=== PATIENT | female | born 1930 | race Caucasian/White ===

== ENCOUNTER 2017-04-10 01:38 | Emergency (ER) | payer MEDICARE ==
--- NOTE | 2017-04-10 02:49 | EDM.PDOC ---
ED HPI GENERAL MEDICAL PROBLEM - General Chief Complaint: General Stated Complaint: NUMBNESS/TINGLING IN LEG Time Seen by Provider: 04/10/17 01:38 Source of Information: Reports: Patient, EMS, Family History Limitations: Reports: Physical Impairment - History of Present Illness INITIAL COMMENTS - FREE TEXT/NARRATIVE: 86 years o w f with chronic anemia, s/o t hip surgeries, came to the ed by EMS and family to the worsening of her right hip pain. Pt needs more help to ambulate at the assisting living place. Pt has an appointment with Dr. Ramírez Ortho this coming Friday. No trauma, No N/V/D or chest pain or any other acute medical issues at this time. Pt is very sensitive to "strong pain meds". Onset: Unknown/Unsure Onset Date: 04/09/17 Onset Time: 12:00 Duration: Getting Worse Location: Reports: Lower Extremity, Right Quality: Reports: Ache, Burning, Dull, Pressure Severity: Moderate Improves with: Reports: Immobilization, Rest Worsens with: Reports: Movement Context: Reports: Other (s/p hip fx, total hip replacement. ) Associated Symptoms: Reports: Weakness - Related Data Allergies Allergy/AdvReac Type Severity Reaction Status Date / Time donepezil HCl [From Aricept] Allergy Rash Verified 04/10/17 02:50 lisinopril Allergy Cough Verified 04/10/17 02:50 Penicillins Allergy Itching Verified 04/10/17 02:50 Home Meds: Home Meds Calcium Carbonate/Vitamin D3 [Caltrate 600 Plus D3 Tablet] 1 tab PO BID [History] Fish Oil/DHA/EPA [Fish Oil 1,200 MG] 1,200 mg PO DAILY 02/05/15 [History] Cyanocobalamin (Vitamin B-12) [Cyanocobalamin Injection] 1,000 mcg IM Q30D 02/10 [History] Cholecalciferol (Vitamin D3) [Vitamin D3] 2,000 unit PO WITHDINNER 06/02/15 [ History] Multivitamin W-Minerals/Lutein [Vision Plus Lutein Vitamin] 1 tab PO DAILY 06/02 [History] Acetaminophen [Tylenol Extra Strength] 1,000 mg PO BID@0900,1600 tablet [Rx] Celecoxib [CeleBREX] 200 mg PO DAILY cap 06/05/15 [Rx] Cephalexin [Keflex] 500 mg PO QID cap 06/05/15 [Rx] Chondroitin/Glucosamine [Glucosamine-Chondroitin] 1 cap PO BID cap 06/05/15 [Rx ] Docusate Sodium [Colace] 100 mg PO BID cap 06/05/15 [Rx] Enoxaparin [Lovenox] 40 mg SUBCUT DAILY syringe 06/05/15 [Rx] Flaxseed Oil 1,000 mg PO DAILY cap 06/05/15 [Rx] Levothyroxine [Synthroid] 50 mcg PO 0600 tablet 06/05/15 [Rx] Magnesium Oxide 400 mg PO DAILY tablet 06/05/15 [Rx] Memantine HCl [Namenda Xr] 28 mg PO DAILY cap.er 06/05/15 [Rx] Mirtazapine [Remeron] 7.5 mg PO BEDTIME tablet 06/05/15 [Rx] Omeprazole 20 mg PO DAILY@0600 cap.cr 06/05/15 [Rx] Sennosides [Senna] 17.2 mg PO BEDTIME tablet 06/05/15 [Rx] Simvastatin [Zocor] 20 mg PO BEDTIME tablet 06/05/15 [Rx] Thiamine [Vitamin B-1] 100 mg PO DAILY tablet 06/05/15 [Rx] Timolol Maleate [Timoptic 0.5% Ophth Soln] 0 ml EYEBOTH DAILY bottle 06/05/15 [ Rx] Valsartan [Diovan] 80 mg PO DAILY tablet 06/05/15 [Rx] oxyCODONE 2.5 mg PO Q6H tablet 06/05/15 [Rx] rOPINIRole [Requip] 0.5 mg PO BEDTIME tablet 06/05/15 [Rx] traMADol [Ultram] 25 mg PO Q6H PRN #0 tablet 06/05/15 [Rx] Past Medical History HEENT History: Reports: Cataract, Impaired Vision Other HEENT History: Wears glasses Gastrointestinal History: Reports: Hemorrhoids Genitourinary History: Reports: Renal Calculus, UTI, Recurrent Other Genitourinary History: Still on cipro for UTI. Incontinence occasionally if unable to get to commode quickly. Use bedside commode. Other Psychiatric History: Mild dementia Other Hematologic History: Recent hx of low Hgb (7.1). Has had 2 U blood, 2 iron infusions. - Past Surgical History GI Surgical History: Reports: Appendectomy, Bariatric Procedure Musculoskeletal Surgical History: Reports: Hip Replacement, Knee Replacement Social & Family History - Tobacco Use Smoking Status *Q: Never Smoker Second Hand Smoke Exposure: No - Alcohol Use Days Per Week of Alcohol Use: 1 Number of Drinks Per Day: 1 Total Drinks Per Week: 1 - Recreational Drug Use Recreational Drug Use: No - Living Situation & Occupation Living situation: Reports: Assisted Living ED ROS GENERAL - Review of Systems Review Of Systems: See Below Constitutional: Reports: Weakness HEENT: Reports: No Symptoms Respiratory: Reports: No Symptoms Cardiovascular: Reports: No Symptoms Endocrine: Reports: No Symptoms GI/Abdominal: Reports: No Symptoms : Reports: No Symptoms Musculoskeletal: Reports: Joint Pain (r hip), Muscle Pain Skin: Reports: No Symptoms Neurological: Reports: No Symptoms, Difficulty Walking (due to r hip pain) Psychiatric: Reports: No Symptoms Hematologic/Lymphatic: Reports: No Symptoms Immunologic: Reports: No Symptoms ED EXAM, GENERAL - Physical Exam Exam: See Below Exam Limited By: Physical Impairment General Appearance: Alert, Obese Eye Exam: Bilateral Eye: Normal Inspection Ears: Normal External Exam Ear Exam: Bilateral Ear: Auricle Normal Nose: Normal Inspection, Normal Mucosa Throat/Mouth: Normal Inspection, Normal Lips Head: Atraumatic, Normocephalic Neck: Normal Inspection, Supple, Non-Tender Respiratory/Chest: No Respiratory Distress, Lungs Clear, Normal Breath Sounds ( decr. insp effort) Cardiovascular: Normal Peripheral Pulses, Regular Rate, Rhythm, No Edema Peripheral Pulses: 1+: Femoral (L), Femoral (R) GI/Abdominal: Normal Bowel Sounds, Distended (not new!) (Female) Exam: Deferred Rectal (Female) Exam: Deferred Back Exam: Normal Inspection, Full Range of Motion Extremities: Other (ROM of r hip decreased due to r hip pain) Neurological: Alert, Oriented, CN II-XII Intact, Normal Cognition, Abnormal Gait Psychiatric: Normal Affect, Normal Mood Skin Exam: Warm, Dry, Intact, Normal Color, No Rash Lymphatic: No Adenopathy Course - Vital Signs Text/Narrative:: 86 years o w f with chronic anemia, s/o t hip surgeries, came to the ed by EMS and family to the worsening of her right hip pain. Pt needs more help to ambulate at the assisting living place. Pt has an appointment with Dr. Ramírez, Ortho this coming Friday. No trauma, No N/V/D or chest pain or any other acute medical issues at this time. Pt is very sensitive to "strong pain meds". Pt's daughter is a nurse. PE Unable to elevate r lower extr. due to hip pain. Suprapubic tenderness. Imaging: s/p Total r hip replacement, no dislocation. Labs: CBC, BMP all WNL UA pos for UTI with hematuria CRP result is pending Impression: UTI, chronic/intermittant r hip pain s/p total hip replacement Tx: Cipro, Pt refused pain meds. Consultation: Dr. Pires, Ortho [facility]: Nothith surgical at this point, f/ u with ortho next friday or admit for pain control. Plan: D/C home. Pt refused to be admitted at this time. Last Recorded V/S: Late entry because the computer was shutting down. - Orders/Labs/Meds Labs: Laboratory Tests 04/10/17 04/10/17 04/10/17 Range/Units 02:18 02:18 02:18 WBC 7.3 (4.5-12.0) X10-3/uL RBC 3.73 (3.23-5.20) x10(6)uL Hgb 11.0 L (11.5-15.5) g/dL Hct 33.3 (30.0-51.3) % MCV 89.2 (80-96) fL MCH 29.5 (27.7-33.6) pg MCHC 33.1 (32.2-35.4) g/dL RDW 12.4 (11.5-15.5) % Plt Count 169 (125-369) X10(3)uL MPV 9.0 (7.4-10.4) fL Neut % (Auto) 62.5 (46-82) % Lymph % (Auto) 25.7 (13-37) % [place] % (Auto) 10.8 (4-12) % Eos % (Auto) 1 (1.0-5.0) % Baso % (Auto) 0 (0-2) % Neut # (Auto) 4.5 (1.6-8.3) # Lymph # (Auto) 1.9 (0.6-5.0) # [place] # (Auto) 0.8 (0.0-1.3) # Eos # (Auto) 0.1 (0.0-0.8) # Baso # (Auto) 0.0 (0.0-0.2) # PT 10.3 (8.7-11.1) INR 1.02 (0.89-1.13) Sodium 138 (135-145) mmol/L Potassium 3.6 (3.5-5.3) mmol/L Chloride 103 (100-110) mmol/L Carbon Dioxide 29 (23-29) mmol/L BUN 20 (8-23) mg/dL Creatinine 0.8 (0.6-1.3) mg/dL Est Cr Clr Drug Dosing TNP Estimated GFR (MDRD) > 60 (>60) BUN/Creatinine Ratio 25.0 H (9-20) Glucose 132 H (80-116) mg/dL Calcium 9.5 (8.6-10.2) mg/dL Creatine Kinase (60-160) IU/L C-Reactive Protein (0.0-1.0) mg/dL Urine Color (YELLOW) Urine Appearance (CLEAR) Urine pH (5.0-6.5) Ur Specific [place] (1.010-1.025) Urine Protein (NEGATIVE) mg/dL Urine Glucose (UA) (NEGATIVE) mg/dL Urine Ketones (NEGATIVE) mg/dL Urine Occult Blood (NEGATIVE) Urine Nitrite (NEGATIVE) Urine Bilirubin (NEGATIVE) Urine Urobilinogen (NEGATIVE) mg/dL Ur Leukocyte Esterase (NEGATIVE) Urine RBC (0) Urine WBC (0) Ur Squamous Epith Cells (NS,R,O) Urine Bacteria (NS) Urine Mucus (NS) 04/10/17 04/10/17 04/10/17 Range/Units 02:18 02:20 02:42 WBC (4.5-12.0) X10-3/uL RBC (3.23-5.20) x10(6)uL Hgb (11.5-15.5) g/dL Hct (30.0-51.3) % MCV (80-96) fL MCH (27.7-33.6) pg MCHC (32.2-35.4) g/dL RDW (11.5-15.5) % Plt Count (125-369) X10(3)uL MPV (7.4-10.4) fL Neut % (Auto) (46-82) % Lymph % (Auto) (13-37) % [place] % (Auto) (4-12) % Eos % (Auto) (1.0-5.0) % Baso % (Auto) (0-2) % Neut # (Auto) (1.6-8.3) # Lymph # (Auto) (0.6-5.0) # [place] # (Auto) (0.0-1.3) # Eos # (Auto) (0.0-0.8) # Baso # (Auto) (0.0-0.2) # PT (8.7-11.1) INR (0.89-1.13) Sodium (135-145) mmol/L Potassium (3.5-5.3) mmol/L Chloride (100-110) mmol/L Carbon Dioxide (23-29) mmol/L BUN (8-23) mg/dL Creatinine (0.6-1.3) mg/dL Est Cr Clr Drug Dosing Estimated GFR (MDRD) (>60) BUN/Creatinine Ratio (9-20) Glucose (80-116) mg/dL Calcium (8.6-10.2) mg/dL Creatine Kinase 44 L (60-160) IU/L C-Reactive Protein > 20.0 H* (0.0-1.0) mg/dL Urine Color Yellow (YELLOW) Urine Appearance Cloudy (CLEAR) Urine pH 5.0 (5.0-6.5) Ur Specific [place] 1.025 (1.010-1.025) Urine Protein 30 H (NEGATIVE) mg/dL Urine Glucose (UA) Normal (NEGATIVE) mg/dL Urine Ketones Negative (NEGATIVE) mg/dL Urine Occult Blood Large H (NEGATIVE) Urine Nitrite Negative (NEGATIVE) Urine Bilirubin Small H (NEGATIVE) Urine Urobilinogen Normal (NEGATIVE) mg/dL Ur Leukocyte Esterase Small H (NEGATIVE) Urine RBC 30-40 H (0) Urine WBC 5-10 (0) Ur Squamous Epith Cells Few H (NS,R,O) Urine Bacteria Moderate H (NS) Urine Mucus Few H (NS) Meds: Medications Discontinued Medications Generic Name Dose Route Start Last Admin Trade Name Freq PRN Reason Stop Dose Admin Ciprofloxacin Confirm 04/10/17 03:49 Ciprofloxacin Hcl Administered 04/10/17 03:50 Dose 500 mg .ROUTE .STK-MED ONE Departure - Departure Time of Disposition: 03:54 Disposition: Home, Self-Care 01 Condition: Fair Clinical Impression: Hip pain, right UTI (urinary tract infection) Qualifiers: Urinary tract infection type: acute cystitis Hematuria presence: with hematuria Qualified Code(s): N30.01 - Acute cystitis with hematuria - Discharge Information Referrals: Tucker White MD [Primary Care Provider] - Forms: ED Department Discharge Additional Instructions: Please take the meds as recommended, please follow up with Ortho this Friday as scheduled at [place]. Please increase water intake, please come back to the ed if your symptoms get worse acutely.
[2017-04-10] MEDS ORDERED: Ciprofloxacin 500 MG Tab ONE (03:49)
--- NOTE | 2017-04-10 16:14 | CR ---
INDICATION: Right hip pain after surgery. (Not recent surgery.) No history of trauma. RIGHT HIP: Four images of the right hip were obtained in frontal and lateral projections to somewhat oblique appearing projection, 04/10/2017, and were compared with 09/18/2015. There appears to be a lucency surrounding the proximal portion of the femoral component, suggesting the possibility of loosening of the femoral component in that area, especially the greater trochanteric area. This appears to be a new finding compared with the previous study. The femoral component appears to be fairly intact. Good position and alignment of the components is suggested, as previously. Also at the proximal sub-greater trochanteric shaft area - proximal metaphyseal area, there is an area of sclerosis at which site a previous lucent lesion was present. This finding may represent a chronic infectious process, such as a Brodies abscess, and should be correlated clinically. Nuclear bone imaging with 3-phase technique may be helpful in this regard also. IMPRESSION: 1. Cannot exclude loosening of the femoral component of the total hip arthroplasty. Three-phase nuclear bone imaging may be helpful for further evaluation, as felt to be clinically necessary. 2. At the proximal sub-greater trochanteric shaft area - proximal metaphyseal area, there is an area of sclerosis at which site a previous lucent lesion was present. This finding may represent a chronic infectious process, such as a Brodies abscess, and should be correlated clinically. Nuclear bone imaging with 3-phase technique may be helpful in this regard also. [facility]
== END 2017-04-10 04:00 | disposition home or self-care (01) ==
LOC: FB.ED 01:38
DX: N30.01 Acute cystitis with hematuria (principal); M25.551 Pain in right hip; Z87.442 Personal history of urinary calculi; Z98.84 Bariatric surgery status; Z96.659 Presence of unspecified artificial knee joint; Z96.649 Presence of unspecified artificial hip joint; Z79.899 Other long term (current) drug therapy; Z88.0 Allergy status to penicillin; Z88.8 Allergy status to other drugs, medicaments and biological substances; Z79.01 Long term (current) use of anticoagulants
CPT/HCPCS: 36415; 73502; 80048; 81001; 82550; 85025; 85610; 86140; 87086; 87088; 87186; 99283; 99284; A9270

== ENCOUNTER 2017-06-16 08:59 | Inpatient (IN) | payer MEDICARE ==
[2017-06-16] MEDS ORDERED: Acetaminophen 325 MG Tab PO SCH (19:00)
[2017-06-16] MEDS: Calcium Carbonate/Vitamin D3 1250 MG-200 Unit Tab PO SCH (20:56)
[2017-06-16] MEDS: Simvastatin 20 MG Tab PO SCH (20:56)
[2017-06-16] MEDS: Chondroitin/Glucosamine Cap PO SCH (20:56)
[2017-06-16] MEDS: Cholecalciferol (Vitamin D3) 1,000 Unit Tab PO SCH (20:56)
[2017-06-16] MEDS: Sennosides 8.6 MG Tab PO SCH (20:56)
[2017-06-16] MEDS: Docusate Sodium 100 MG Cap PO SCH (20:56)
[2017-06-16] MEDS: Memantine 10 MG Tab PO SCH (20:57)
[2017-06-16] MEDS: Mirtazapine 15 MG Tab PO SCH (20:57)
[2017-06-16] MEDS: rOPINIRole 0.5 MG Tab PO SCH (20:57)
[2017-06-16] MEDS: traMADol 50 MG Tab PO PRN (21:56)
[2017-06-17] MEDS: Acetaminophen 325 MG Tab PO SCH ×3 (01:05→17:45)
[2017-06-17] MEDS: Levothyroxine 50 MCG Tab PO SCH (05:13)
[2017-06-17] MEDS: traMADol 50 MG Tab PO PRN ×3 (05:13→20:10)
[2017-06-17] MEDS: Pantoprazole 40 MG Tab.CR PO SCH (05:13)
[2017-06-17] MEDS: Celecoxib 200 MG Cap PO SCH (08:43)
[2017-06-17] MEDS: Citalopram 10 MG Tab PO SCH (08:43)
[2017-06-17] MEDS: Calcium Carbonate/Vitamin D3 1250 MG-200 Unit Tab PO SCH ×2 (08:43→20:06)
[2017-06-17] MEDS: Valsartan 160 MG Tab PO SCH (08:44)
[2017-06-17] MEDS: Docusate Sodium 100 MG Cap PO SCH ×2 (08:44→20:07)
[2017-06-17] MEDS: Chondroitin/Glucosamine Cap PO SCH ×2 (08:45→20:07)
[2017-06-17] MEDS: Fish Oil/Omega-3 Fatty Acids 1 Gm Cap PO SCH (08:45)
[2017-06-17] MEDS: Flaxseed Oil 1,000 MG Cap PO SCH (08:45)
[2017-06-17] MEDS: Magnesium Oxide 400 MG Tab PO SCH (08:46)
[2017-06-17] MEDS: Enoxaparin 40 MG/0.4 ML Syringe SUBCUT SCH (08:46)
[2017-06-17] MEDS: Memantine 10 MG Tab PO SCH ×2 (08:47→20:08)
[2017-06-17] MEDS: Polyethylene Glycol 3350 Powder 17 GM Packet PO SCH (08:47)
[2017-06-17] MEDS: Lutein/Minerals/Vitamin C/Vitamin E Acetate Cap PO SCH (08:48)
[2017-06-17] MEDS: amLODIPine 2.5 MG Tab PO SCH (08:48)
[2017-06-17] MEDS: Timolol Maleate 0.5% Ophth Soln 5 ML Bottle EYEBOTH SCH (08:48)
[2017-06-17] MEDS: Thiamine 100 MG Tab PO SCH (08:51)
[2017-06-17] MEDS: rOPINIRole 0.5 MG Tab PO SCH (20:08)
[2017-06-17] MEDS: Mirtazapine 15 MG Tab PO SCH (20:08)
[2017-06-17] MEDS: Sennosides 8.6 MG Tab PO SCH (20:09)
[2017-06-17] MEDS: Cholecalciferol (Vitamin D3) 1,000 Unit Tab PO SCH (20:09)
[2017-06-17] MEDS: Acetaminophen/Diphenhydramine 500-25 MG Tab PO PRN (20:10)
[2017-06-17] MEDS: Simvastatin 20 MG Tab PO SCH (20:10)
[2017-06-18] MEDS: Acetaminophen 325 MG Tab PO SCH ×3 (01:04→16:55)
[2017-06-18] MEDS: Levothyroxine 50 MCG Tab PO SCH (05:06)
[2017-06-18] MEDS: Pantoprazole 40 MG Tab.CR PO SCH (05:07)
[2017-06-18] MEDS: Celecoxib 200 MG Cap PO SCH (09:06)
[2017-06-18] MEDS: Calcium Carbonate/Vitamin D3 1250 MG-200 Unit Tab PO SCH ×2 (09:06→21:00)
[2017-06-18] MEDS: Citalopram 10 MG Tab PO SCH (09:07)
[2017-06-18] MEDS: Docusate Sodium 100 MG Cap PO SCH ×2 (09:07→21:00)
[2017-06-18] MEDS: Valsartan 160 MG Tab PO SCH (09:07)
[2017-06-18] MEDS: Flaxseed Oil 1,000 MG Cap PO SCH (09:08)
[2017-06-18] MEDS: Chondroitin/Glucosamine Cap PO SCH ×2 (09:08→21:01)
[2017-06-18] MEDS: Fish Oil/Omega-3 Fatty Acids 1 Gm Cap PO SCH (09:08)
[2017-06-18] MEDS: Enoxaparin 40 MG/0.4 ML Syringe SUBCUT SCH (09:09)
[2017-06-18] MEDS: Polyethylene Glycol 3350 Powder 17 GM Packet PO SCH (09:09)
[2017-06-18] MEDS: Memantine 10 MG Tab PO SCH ×2 (09:09→21:05)
[2017-06-18] MEDS: Magnesium Oxide 400 MG Tab PO SCH (09:09)
[2017-06-18] MEDS: amLODIPine 2.5 MG Tab PO SCH (09:10)
[2017-06-18] MEDS: Timolol Maleate 0.5% Ophth Soln 5 ML Bottle EYEBOTH SCH (09:10)
[2017-06-18] MEDS: Lutein/Minerals/Vitamin C/Vitamin E Acetate Cap PO SCH (09:10)
[2017-06-18] MEDS: Thiamine 100 MG Tab PO SCH (09:12)
--- NOTE | 2017-06-18 09:22 | PCM.HP ---
H&P History of Present Illness - General Date of Service: 06/18/17 Admit Problem/Dx: Admission Diagnosis/Problem Admission Diagnosis/Problem Weakness - History of Present Illness Initial Comments - Free Text/Narative: 86-year-old female who has been admitted to transitional care after deviation of right hip arthroplasty. This was pursued on 11 June [place]. She had 2 units of PRBCs afterwards. She complains of mild constipation. Pain is well controlled on Tylenol. She has a history of hyperlipidemia, restless leg syndrome of mood disorder that are stable. denies pain when asked Pain Score (Numeric/FACES): 0 lateral area of right hip Pain Score (Numeric/FACES): 2 - Related Data Allergies/Adverse Reactions: Allergies Allergy/AdvReac Type Severity Reaction Status Date / Time adhesive tape Allergy Rash Verified 06/16/17 16:21 bee venom protein (honey bee) Allergy Swelling Verified 06/16/17 16:21 donepezil HCl [From Aricept] Allergy Rash Verified 06/16/17 16:21 lisinopril Allergy Cough Verified 06/16/17 16:21 morphine Allergy Hallucinati Verified 06/16/17 16:21 ons Penicillins Allergy Itching Verified 06/16/17 16:21 Home Medications: Home Meds Fish Oil/DHA/EPA [Fish Oil 1,200 MG] 1,200 mg PO DAILY 02/05/15 [History] Multivitamin W-Minerals/Lutein [Vision Plus Lutein Vitamin] 1 tab PO DAILY 06/02 [History] Celecoxib [CeleBREX] 200 mg PO DAILY cap 06/05/15 [Rx] Chondroitin/Glucosamine [Glucosamine-Chondroitin] 1 cap PO BID cap 06/05/15 [Rx ] Docusate Sodium [Colace] 100 mg PO BID cap 06/05/15 [Rx] Levothyroxine [Synthroid] 50 mcg PO 0600 tablet 06/05/15 [Rx] Magnesium Oxide 400 mg PO DAILY tablet 06/05/15 [Rx] Memantine HCl [Namenda Xr] 28 mg PO DAILY cap.er 06/05/15 [Rx] Mirtazapine [Remeron] 7.5 mg PO BEDTIME tablet 06/05/15 [Rx] Omeprazole 20 mg PO DAILY@0600 cap.cr 06/05/15 [Rx] Sennosides [Senna] 17.2 mg PO BEDTIME tablet 06/05/15 [Rx] Simvastatin [Zocor] 20 mg PO BEDTIME tablet 06/05/15 [Rx] Thiamine [Vitamin B-1] 100 mg PO DAILY tablet 06/05/15 [Rx] rOPINIRole [Requip] 0.5 mg PO BEDTIME tablet 06/05/15 [Rx] Acetaminophen [Tylenol] 650 mg PO Q8H 06/16/17 [History] Acetaminophen/Diphenhydramine [Tylenol Pm Ex-Strength Caplet] 2 tab PO BEDTIME PRN 06/16/17 [History] Calcium Citrate/Vitamin D3 [Calcium Citrate - Vit D Tablet] 2 tab PO BID [History] Cholecalciferol (Vitamin D3) [Vitamin D] 2,000 units PO BEDTIME 06/16/17 [ History] Citalopram [Citalopram HBr] 10 mg PO DAILY 06/16/17 [History] Enoxaparin Sodium [Lovenox] 40 mg SUBCUT DAILY 06/16/17 [History] Flaxseed 1200mg 1,200 mg PO DAILY 06/16/17 [History] Polyethylene Glycol 3350 [MiraLAX] 17 gm PO DAILY 06/16/17 [History] Timolol Maleate [Timoptic 0.5% Ophth Soln] 1 drop EYEBOTH DAILY 06/16/17 [ History] Valsartan [Diovan] 160 mg PO DAILY 06/16/17 [History] amLODIPine [Norvasc] 2.5 mg PO DAILY 06/16/17 [History] oxyCODONE 5 mg PO Q4H PRN 06/16/17 [History] traMADol [Ultram] 50 mg PO Q6H PRN 06/16/17 [History] Past Medical History HEENT History: Reports: Cataract, Impaired Vision Other HEENT History: Wears glasses Cardiovascular History: Reports: Heart Murmur, High Cholesterol, Hypertension Gastrointestinal History: Reports: GERD, Hemorrhoids Genitourinary History: Reports: Renal Calculus, UTI, Recurrent Other Genitourinary History: Still on cipro for UTI. Incontinence occasionally if unable to get to commode quickly. Use bedside commode. Musculoskeletal History: Reports: Other (See Below) Other Musculoskeletal History: restless leg syndrome Neurological History: Reports: Other (See Below) Other Neuro History: spine surgery-10 years ago Psychiatric History: Reports: Dementia, Depression Other Psychiatric History: Mild dementia Endocrine/Metabolic History: Reports: Hypothyroidism Hematologic History: Reports: Anemia, Other (See Below) Other Hematologic History: Recent hx of low Hgb (7.1). Has had 2 U blood, 2 iron infusions. 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 Endocrine Surgical History: Reports: Thyroidectomy Other Endocrine Surgeries/Procedures: 40 years ago Musculoskeletal Surgical History: Reports: Hip Replacement, Knee Replacement, Other (See Below) Other Musculoskeletal Surgeries/Procedures:: Hip arthroplasty 2014; carpal tunnel surgery Social & Family History - Tobacco Use Smoking Status *Q: Former Smoker Used Tobacco, but Quit: No Second Hand Smoke Exposure: No - Caffeine Use Caffeine Use: Reports: Coffee Other Caffeine Use: 1 coffee cup - Alcohol Use Days Per Week of Alcohol Use: 1 Number of Drinks Per Day: 1 Total Drinks Per Week: 1 - Recreational Drug Use Recreational Drug Use: No - Living Situation & Occupation Living situation: Reports: Assisted Living H&P Review of Systems - Review of Systems: Review Of Systems: ROS reveals no pertinent complaints other than HPI. Exam - Exam Exam: See Below - Vital Signs Vital Signs: Last Vital Signs Temp 98.1 F 06/16/17 14:10 Pulse 66 06/16/17 14:10 Resp 18 06/16/17 14:10 BP 130/78 06/18/17 09:10 Pulse Ox 95 06/16/17 14:10 Weight: 95.254 kg - Exam General: Alert, Oriented, 4 HEENT: PERRLA, Hearing Intact, Mucosa Moist & [place], Nares Patent, Normal Nasal Septum, Posterior Pharynx Clear, Conjunctiva Clear, EOMI, EACs Clear, TMs Clear Neck: Supple, Trachea Midline, 2 Lungs: Clear to Auscultation, Normal Respiratory Effort Cardiovascular: Systolic Murmur, Other GI/Abdominal Exam: Normal Bowel Sounds, Soft, Non-Tender, No Organomegaly, No Distention, No Abnormal Bruit, No Mass, Pelvis Stable (Female) Exam: Normal External Exam, Normal Speculum Exam, Normal Bimanual Exam Rectal (Female) Exam: Normal Exam, Normal Rectal Tone Back Exam: Normal Inspection, Full Range of Motion, NT Extremities: Normal Inspection, Normal Range of Motion, Non-Tender, No Pedal Edema, Normal Capillary Refill Skin: Warm, Dry, Intact Neurological: Cranial Nerves Intact, Reflexes Equal Bilateral Neuro Extensive - Mental Status: Alert, Oriented x3, Normal Mood/Affect, Normal Cognition Neuro Extensive - Motor, Sensory, Reflexes: CN II-XII Intact, Normal Gait, Normal Reflexes Psychiatric: Alert, Normal Affect, Normal Mood *Q Meaningful Use (ADM) - VTE *Q VTE Criteria *Q: - Stroke *Q Stroke Criteria *Q: - AMI *Q AMI Criteria *Q: - Problem List (1) HTN (hypertension) SNOMED Code(s): 80541701 ICD Code: I10 - ESSENTIAL (PRIMARY) HYPERTENSION Status: Acute Current Visit: Yes Qualifiers: Hypertension type: essential hypertension Qualified Code(s): I10 - Essential (primary) hypertension (2) RLS (restless legs syndrome) SNOMED Code(s): 48452540 ICD Code: G25.81 - RESTLESS LEGS SYNDROME Status: Acute Current Visit: Yes (3) Chronic anemia SNOMED Code(s): 738292771 ICD Code: D64.9 - ANEMIA, UNSPECIFIED Status: Acute Current Visit: No Problem Details: stable h/h. recent 2 units prbc post op and iron infusion. no active bleeding concerns at this time. (4) Status post right hip replacement SNOMED Code(s): 628130848, 313856162 ICD Code: Z96.641 - PRESENCE OF RIGHT ARTIFICIAL HIP JOINT Status: Acute Current Visit: No Problem Details: revised on 06/11 (5) HLD (hyperlipidemia) SNOMED Code(s): 19462649 ICD Code: E78.5 - HYPERLIPIDEMIA, UNSPECIFIED Status: Acute Current Visit : Yes Qualifiers: Hyperlipidemia type: other hyperlipidemia Qualified Code(s): E78.4 - Other hyperlipidemia (6) Mood disorder Status: Acute Current Visit: Yes Problem List Initiated/Reviewed/Updated: Yes Orders Last 24hrs: Active Orders 24 hr Category Date Time Status Celecoxib [CeleBREX] Med 06/17/17 09:00 Active 200 mg PO DAILY Citalopram [Celexa] Med 06/17/17 09:00 Active 10 mg PO DAILY Enoxaparin [Lovenox] Med 06/17/17 09:00 Active 40 mg SUBCUT DAILY Fish Oil/[place]-3 Fatty Acids [Fish Oil] Med 06/17/17 09:00 Active 1 gm PO DAILY Flaxseed Oil Med 06/17/17 09:00 Active 1,000 mg PO DAILY Lutein/Min/Vit C/Vit E Acetate [Ocuvite Lutein] Med 06/17/17 09:00 Active 1 each PO DAILY Magnesium Oxide Med 06/17/17 09:00 Active 400 mg PO DAILY Polyethylene Glycol 3350 [MiraLAX] Med 06/17/17 09:00 Active 17 gm PO DAILY Thiamine [Vitamin B-1] Med 06/17/17 09:00 Active 100 mg PO DAILY Timolol Maleate [Timoptic 0.5% Ophth Soln] Med 06/17/17 09:00 Active 0 ml EYEBOTH DAILY Valsartan [Diovan] Med 06/17/17 09:00 Active 160 mg PO DAILY amLODIPine [Norvasc] Med 06/17/17 09:00 Active 2.5 mg PO DAILY Medication Orders Acetaminophen (Tylenol) 650 mg PO TID@0100,0900,1700 [facility] Last Admin: 06/18/17 09:10 Dose: 650 mg Admin: 06/18/17 01:04 Dose: 650 mg Admin: 06/17/17 17:45 Dose: 650 mg Admin: 06/17/17 08:49 Dose: 650 mg Admin: 06/17/17 01:05 Dose: 650 mg Acetaminophen/Diphenhydramine HCl (Tylenol Pm Extra Strength) 2 tab PO BEDTIME PRN PRN Reason: Sleep Last Admin: 06/17/17 20:10 Dose: 2 tab Amlodipine Besylate (Norvasc) 2.5 mg PO DAILY [facility] Last Admin: 06/18/17 09:10 Dose: 2.5 mg Admin: 06/17/17 08:48 Dose: 2.5 mg Calcium Carbonate (Calcium Carbonate/Vitamin D 1250 Mg-200 Unit) 2 tab PO BID [facility] Last Admin: 06/18/17 09:06 Dose: 2 tab Admin: 06/17/17 20:06 Dose: 2 tab Admin: 06/17/17 08:43 Dose: 2 tab Admin: 06/16/17 20:56 Dose: 2 tab Celecoxib (Celebrex) 200 mg PO DAILY [facility] Last Admin: 06/18/17 09:06 Dose: 200 mg Admin: 06/17/17 08:43 Dose: 200 mg Cholecalciferol (Vitamin D3) 2,000 units PO BEDTIME [facility] Last Admin: 06/17/17 20:09 Dose: 2,000 units Admin: 06/16/17 20:56 Dose: 2,000 units Citalopram Hydrobromide (Celexa) 10 mg PO DAILY [facility] Last Admin: 06/18/17 09:07 Dose: 10 mg Admin: 06/17/17 08:43 Dose: 10 mg Docusate Sodium (Colace) 100 mg PO BID [facility] Last Admin: 06/18/17 09:07 Dose: 100 mg Admin: 06/17/17 20:07 Dose: 100 mg Admin: 06/17/17 08:44 Dose: 100 mg Admin: 06/16/17 20:56 Dose: 100 mg Enoxaparin Sodium (Lovenox) 40 mg SUBCUT DAILY [facility] Last Admin: 06/18/17 09:09 Dose: 40 mg Admin: 06/17/17 08:46 Dose: 40 mg Fish Oil (Fish Oil) 1 gm PO DAILY [facility] Last Admin: 06/18/17 09:08 Dose: 1 gm Admin: 06/17/17 08:45 Dose: 1 gm Flaxseed (Flaxseed Oil) 1,000 mg PO DAILY [facility] Last Admin: 06/18/17 09:08 Dose: 1,000 mg Admin: 06/17/17 08:45 Dose: 1,000 mg Glucosamine/Chondroitin (Glucosamine-Chondroitin 500-400 Capsule) 1 cap PO BID [facility] Last Admin: 06/18/17 09:08 Dose: 1 cap Admin: 06/17/17 20:07 Dose: 1 cap Admin: 06/17/17 08:45 Dose: 1 cap Admin: 06/16/17 20:56 Dose: 1 cap Levothyroxine Sodium (Synthroid) 50 mcg PO 0600 [facility] Last Admin: 06/18/17 05:06 Dose: 50 mcg Admin: 06/17/17 05:13 Dose: 50 mcg Magnesium Oxide (Magnesium Oxide) 400 mg PO DAILY [facility] Last Admin: 06/18/17 09:09 Dose: 400 mg Admin: 06/17/17 08:46 Dose: 400 mg Memantine (Namenda) 10 mg PO BID [facility] Last Admin: 06/18/17 09:09 Dose: 10 mg Admin: 06/17/17 20:08 Dose: 10 mg Admin: 06/17/17 08:47 Dose: 10 mg Admin: 06/16/17 20:57 Dose: 10 mg Mirtazapine (Remeron) 7.5 mg PO BEDTIME [facility] Last Admin: 06/17/17 20:08 Dose: 7.5 mg Admin: 06/16/17 20:57 Dose: 7.5 mg Oxycodone HCl (Oxycodone) 5 mg PO Q4H PRN PRN Reason: severe pain Pantoprazole Sodium (Protonix) 40 mg PO DAILY@0600 [facility] Last Admin: 06/18/17 05:07 Dose: 40 mg Admin: 06/17/17 05:13 Dose: 40 mg Polyethylene Glycol (Miralax) 17 gm PO DAILY [facility] Last Admin: 06/18/17 09:09 Dose: 17 gm Admin: 06/17/17 08:47 Dose: Not Given Ropinirole HCl (Requip) 0.5 mg PO BEDTIME [facility] Last Admin: 06/17/17 20:08 Dose: 0.5 mg Admin: 06/16/17 20:57 Dose: 0.5 mg Senna (Senna) 17.2 mg PO BEDTIME [facility] Last Admin: 06/17/17 20:09 Dose: 17.2 mg Admin: 06/16/17 20:56 Dose: 17.2 mg Simvastatin (Zocor) 20 mg PO BEDTIME [facility] Last Admin: 06/17/17 20:10 Dose: 20 mg Admin: 06/16/17 20:56 Dose: 20 mg Thiamine HCl (Vitamin B-1) 100 mg PO DAILY [facility] Last Admin: 06/18/17 09:12 Dose: 100 mg Admin: 06/17/17 08:51 Dose: 100 mg Timolol Maleate (Timoptic 0.5% Ophth Soln) 0 ml EYEBOTH DAILY [facility] Last Admin: 06/18/17 09:10 Dose: 1 drop Admin: 06/17/17 08:48 Dose: 1 drop Tramadol HCl (Ultram) 50 mg PO Q6H PRN PRN Reason: MODERATE PAIN Last Admin: 06/17/17 20:10 Dose: 50 mg Admin: 06/17/17 14:07 Dose: 50 mg Admin: 06/17/17 05:13 Dose: 50 mg Admin: 06/16/17 21:56 Dose: 50 mg Valsartan (Diovan) 160 mg PO DAILY [facility] Last Admin: 06/18/17 09:07 Dose: 160 mg Admin: 06/17/17 08:44 Dose: 160 mg Vit C/Vit E/Zinc/Copper/Lutein (Ocuvite Lutein) 1 each PO DAILY [facility] Last Admin: 06/18/17 09:10 Dose: 1 each Admin: 06/17/17 08:48 Dose: 1 each Assessment/Plan Comment:: PT/OT. Continue miralax PRN
[2017-06-18] MEDS: Mirtazapine 15 MG Tab PO SCH (21:02)
[2017-06-18] MEDS: rOPINIRole 0.5 MG Tab PO SCH (21:03)
[2017-06-18] MEDS: Sennosides 8.6 MG Tab PO SCH (21:07)
[2017-06-18] MEDS: Cholecalciferol (Vitamin D3) 1,000 Unit Tab PO SCH (21:07)
[2017-06-18] MEDS: Simvastatin 20 MG Tab PO SCH (21:08)
[2017-06-19] MEDS: Acetaminophen 325 MG Tab PO SCH ×2 (00:56→08:14)
[2017-06-19] MEDS: Levothyroxine 50 MCG Tab PO SCH (05:10)
[2017-06-19] MEDS: Pantoprazole 40 MG Tab.CR PO SCH (05:10)
[2017-06-19] MEDS: Calcium Carbonate/Vitamin D3 1250 MG-200 Unit Tab PO SCH ×2 (08:10→20:17)
[2017-06-19] MEDS: Celecoxib 200 MG Cap PO SCH (08:10)
[2017-06-19] MEDS: Docusate Sodium 100 MG Cap PO SCH ×2 (08:10→20:18)
[2017-06-19] MEDS: Citalopram 10 MG Tab PO SCH (08:10)
[2017-06-19] MEDS: Valsartan 160 MG Tab PO SCH (08:11)
[2017-06-19] MEDS: Flaxseed Oil 1,000 MG Cap PO SCH (08:12)
[2017-06-19] MEDS: Fish Oil/Omega-3 Fatty Acids 1 Gm Cap PO SCH (08:12)
[2017-06-19] MEDS: Polyethylene Glycol 3350 Powder 17 GM Packet PO SCH (08:13)
[2017-06-19] MEDS: Memantine 10 MG Tab PO SCH ×2 (08:13→20:19)
[2017-06-19] MEDS: Magnesium Oxide 400 MG Tab PO SCH (08:13)
[2017-06-19] MEDS: Enoxaparin 40 MG/0.4 ML Syringe SUBCUT SCH (08:13)
[2017-06-19] MEDS: amLODIPine 2.5 MG Tab PO SCH (08:13)
[2017-06-19] MEDS: Chondroitin/Glucosamine Cap PO SCH ×2 (08:13→20:18)
[2017-06-19] MEDS: Lutein/Minerals/Vitamin C/Vitamin E Acetate Cap PO SCH (08:14)
[2017-06-19] MEDS: Thiamine 100 MG Tab PO SCH (08:14)
[2017-06-19] MEDS: Timolol Maleate 0.5% Ophth Soln 5 ML Bottle EYEBOTH SCH (08:14)
[2017-06-19] MEDS ORDERED: Polyethylene Glycol 3350 Powder 17 GM Packet PO PRN (12:12)
[2017-06-19] MEDS: Acetaminophen 325 MG Tab PO PRN (13:12)
[2017-06-19] MEDS: Mirtazapine 15 MG Tab PO SCH (20:19)
[2017-06-19] MEDS: rOPINIRole 0.5 MG Tab PO SCH (20:20)
[2017-06-19] MEDS: Cholecalciferol (Vitamin D3) 1,000 Unit Tab PO SCH (20:20)
[2017-06-19] MEDS: Sennosides 8.6 MG Tab PO SCH (20:20)
[2017-06-19] MEDS: Acetaminophen/Diphenhydramine 500-25 MG Tab PO PRN (20:21)
[2017-06-19] MEDS: Simvastatin 20 MG Tab PO SCH (20:21)
[2017-06-19] MEDS: oxyCODONE 5 MG Tab PO PRN (22:34)
[2017-06-20] MEDS: Pantoprazole 40 MG Tab.CR PO SCH (05:30)
[2017-06-20] MEDS: oxyCODONE 5 MG Tab PO PRN (05:30)
[2017-06-20] MEDS: Levothyroxine 50 MCG Tab PO SCH (05:30)
[2017-06-20] MEDS: Celecoxib 200 MG Cap PO SCH (08:59)
[2017-06-20] MEDS: Citalopram 10 MG Tab PO SCH (08:59)
[2017-06-20] MEDS: Chondroitin/Glucosamine Cap PO SCH ×2 (08:59→20:39)
[2017-06-20] MEDS: Calcium Carbonate/Vitamin D3 1250 MG-200 Unit Tab PO SCH ×2 (08:59→20:39)
[2017-06-20] MEDS: Docusate Sodium 100 MG Cap PO SCH ×2 (08:59→20:39)
[2017-06-20] MEDS: Memantine 10 MG Tab PO SCH ×2 (08:59→20:40)
[2017-06-20] MEDS: Thiamine 100 MG Tab PO SCH (08:59)
[2017-06-20] MEDS: amLODIPine 2.5 MG Tab PO SCH (08:59)
[2017-06-20] MEDS: Valsartan 160 MG Tab PO SCH (08:59)
[2017-06-20] MEDS: Flaxseed Oil 1,000 MG Cap PO SCH (08:59)
[2017-06-20] MEDS: Magnesium Oxide 400 MG Tab PO SCH (08:59)
[2017-06-20] MEDS: Fish Oil/Omega-3 Fatty Acids 1 Gm Cap PO SCH (08:59)
[2017-06-20] MEDS: Acetaminophen 325 MG Tab PO PRN (09:00)
[2017-06-20] MEDS: Enoxaparin 40 MG/0.4 ML Syringe SUBCUT SCH (09:00)
[2017-06-20] MEDS: Timolol Maleate 0.5% Ophth Soln 5 ML Bottle EYEBOTH SCH (09:00)
[2017-06-20] MEDS: Lutein/Minerals/Vitamin C/Vitamin E Acetate Cap PO SCH (09:00)
[2017-06-20] MEDS: rOPINIRole 0.5 MG Tab PO SCH (20:40)
[2017-06-20] MEDS: Mirtazapine 15 MG Tab PO SCH (20:40)
[2017-06-20] MEDS: Sennosides 8.6 MG Tab PO SCH (20:41)
[2017-06-20] MEDS: Cholecalciferol (Vitamin D3) 1,000 Unit Tab PO SCH (20:41)
[2017-06-20] MEDS: Simvastatin 20 MG Tab PO SCH (20:42)
[2017-06-20] MEDS: traMADol 50 MG Tab PO PRN (20:42)
[2017-06-21] MEDS: Pantoprazole 40 MG Tab.CR PO SCH (06:38)
[2017-06-21] MEDS: Levothyroxine 50 MCG Tab PO SCH (06:38)
[2017-06-21] MEDS: Acetaminophen 325 MG Tab PO PRN (08:36)
[2017-06-21] MEDS: Celecoxib 200 MG Cap PO SCH (08:36)
[2017-06-21] MEDS: Flaxseed Oil 1,000 MG Cap PO SCH (08:36)
[2017-06-21] MEDS: Citalopram 10 MG Tab PO SCH (08:36)
[2017-06-21] MEDS: Docusate Sodium 100 MG Cap PO SCH ×2 (08:36→20:30)
[2017-06-21] MEDS: Calcium Carbonate/Vitamin D3 1250 MG-200 Unit Tab PO SCH ×2 (08:36→20:29)
[2017-06-21] MEDS: Valsartan 160 MG Tab PO SCH (08:36)
[2017-06-21] MEDS: Fish Oil/Omega-3 Fatty Acids 1 Gm Cap PO SCH (08:36)
[2017-06-21] MEDS: Enoxaparin 40 MG/0.4 ML Syringe SUBCUT SCH (08:37)
[2017-06-21] MEDS: Memantine 10 MG Tab PO SCH ×2 (08:37→20:30)
[2017-06-21] MEDS: Chondroitin/Glucosamine Cap PO SCH ×2 (08:37→20:30)
[2017-06-21] MEDS: Lutein/Minerals/Vitamin C/Vitamin E Acetate Cap PO SCH (08:37)
[2017-06-21] MEDS: Thiamine 100 MG Tab PO SCH (08:37)
[2017-06-21] MEDS: Magnesium Oxide 400 MG Tab PO SCH (08:37)
[2017-06-21] MEDS: Timolol Maleate 0.5% Ophth Soln 5 ML Bottle EYEBOTH SCH (08:37)
[2017-06-21] MEDS: amLODIPine 2.5 MG Tab PO SCH (08:37)
--- NOTE | 2017-06-21 16:40 | PCM.PN ---
- General Info Date of Service: 06/21/17 Subjective Update: Patient is an 86-year-old female who was admitted to swing bed on 06/16/17 after right hip revision on 06/11 at [place]. She apparently broke her femur back in 2014, had a kaden and pin placed, and this has given her problems ever since. The decision was finally made to do a revision surgery because of pain. She required 2 units packed red blood cells after surgery. She did have some trouble with constipation but now that she is off the narcotics it's better. She has no chest pain. No shortness of breath. No nausea or vomiting. Her legs are a little puffy, which she notes is common for her. She has well-controlled pain with Tylenol alone. Her biggest complaint is the bed monitor that every time she tries to get up alarms. Functional Status: Reports: Pain Controlled, Tolerating Diet, Ambulating, Urinating - Patient Data Vitals - Most Recent: Last Vital Signs Temp 36.8 C 06/21/17 08:30 Pulse 88 06/21/17 08:30 Resp 18 06/21/17 08:30 BP 142/76 H 06/21/17 08:37 Pulse Ox 96 06/21/17 08:30 Weight - Most Recent: 95.254 kg Med Orders - Current: Current Medications Acetaminophen (Tylenol) 650 mg PO Q4H PRN PRN Reason: Pain Last Admin: 06/21/17 08:36 Dose: 650 mg Amlodipine Besylate (Norvasc) 5 mg PO DAILY [facility] Calcium Carbonate (Calcium Carbonate/Vitamin D 1250 Mg-200 Unit) 2 tab PO BID [facility] Last Admin: 06/21/17 08:36 Dose: 2 tab Celecoxib (Celebrex) 200 mg PO DAILY [facility] Last Admin: 06/21/17 08:36 Dose: 200 mg Cholecalciferol (Vitamin D3) 2,000 units PO BEDTIME [facility] Last Admin: 06/20/17 20:41 Dose: 2,000 units Citalopram Hydrobromide (Celexa) 10 mg PO DAILY [facility] Last Admin: 06/21/17 08:36 Dose: 10 mg Docusate Sodium (Colace) 100 mg PO BID [facility] Last Admin: 06/21/17 08:36 Dose: 100 mg Enoxaparin Sodium (Lovenox) 40 mg SUBCUT DAILY [facility] Stop: 07/12/17 09:01 Last Admin: 06/21/17 08:37 Dose: 40 mg Fish Oil (Fish Oil) 1 gm PO DAILY [facility] Last Admin: 06/21/17 08:36 Dose: 1 gm Flaxseed (Flaxseed Oil) 1,000 mg PO DAILY [facility] Last Admin: 06/21/17 08:36 Dose: 1,000 mg Glucosamine/Chondroitin (Glucosamine-Chondroitin 500-400 Capsule) 1 cap PO BID [facility] Last Admin: 06/21/17 08:37 Dose: 1 cap Levothyroxine Sodium (Synthroid) 50 mcg PO 0600 [facility] Last Admin: 06/21/17 06:38 Dose: 50 mcg Magnesium Oxide (Magnesium Oxide) 400 mg PO DAILY [facility] Last Admin: 06/21/17 08:37 Dose: 400 mg Memantine (Namenda) 10 mg PO BID [facility] Last Admin: 06/21/17 08:37 Dose: 10 mg Mirtazapine (Remeron) 7.5 mg PO BEDTIME [facility] Last Admin: 06/20/17 20:40 Dose: 7.5 mg Pantoprazole Sodium (Protonix) 40 mg PO DAILY@0600 [facility] Last Admin: 06/21/17 06:38 Dose: 40 mg Phenyleph/Shark Oil/Min Oil/Petrol (Preparation H Oint) 0 gm RECTAL BEDTIME [facility] Polyethylene Glycol (Miralax) 17 gm PO DAILY PRN PRN Reason: Constipation Ropinirole HCl (Requip) 0.5 mg PO BEDTIME [facility] Last Admin: 06/20/17 20:40 Dose: 0.5 mg Senna (Senna) 17.2 mg PO BEDTIME [facility] Last Admin: 06/20/17 20:41 Dose: 17.2 mg Thiamine HCl (Vitamin B-1) 100 mg PO DAILY [facility] Last Admin: 06/21/17 08:37 Dose: 100 mg Timolol Maleate (Timoptic 0.5% Ophth Soln) 0 ml EYEBOTH DAILY [facility] Last Admin: 06/21/17 08:37 Dose: 1 drop Tramadol HCl (Ultram) 50 mg PO Q6H PRN PRN Reason: MODERATE PAIN Last Admin: 06/20/17 20:42 Dose: 50 mg Valsartan (Diovan) 160 mg PO DAILY [facility] Last Admin: 06/21/17 08:36 Dose: 160 mg Vit C/Vit E/Zinc/Copper/Lutein (Ocuvite Lutein) 1 each PO DAILY [facility] Last Admin: 06/21/17 08:37 Dose: 1 each Discontinued Medications Acetaminophen (Tylenol) 650 mg PO Q8H [facility] Last Admin: 06/16/17 18:56 Dose: 650 mg Acetaminophen (Tylenol) 650 mg PO TID@0100,0900,1700 [facility] Last Admin: 06/19/17 08:14 Dose: 650 mg Acetaminophen/Diphenhydramine HCl (Tylenol Pm Extra Strength) 2 tab PO BEDTIME PRN PRN Reason: Sleep Last Admin: 06/19/17 20:21 Dose: 2 tab Amlodipine Besylate (Norvasc) 2.5 mg PO DAILY [facility] Last Admin: 06/21/17 08:37 Dose: 2.5 mg Oxycodone HCl (Oxycodone) 5 mg PO Q4H PRN PRN Reason: severe pain Last Admin: 06/20/17 05:30 Dose: 5 mg Polyethylene Glycol (Miralax) 17 gm PO DAILY [facility] Last Admin: 06/19/17 08:13 Dose: Not Given Simvastatin (Zocor) 20 mg PO BEDTIME [facility] Last Admin: 06/20/17 20:42 Dose: 20 mg - Exam General: Alert, Oriented (to person and place.) HEENT: Pupils Equal, Pupils Reactive Neck: Supple Lungs: Clear to Auscultation, Normal Respiratory Effort Cardiovascular: Regular Rate, Regular Rhythm, Murmurs (systolic ejection, sounds like aortic stenosis.) GI/Abdominal Exam: Normal Bowel Sounds, Soft, Non-Tender, No Distention Extremities: Pedal Edema (1+ edema.) - Problem List & Annotations (1) Status post right hip replacement SNOMED Code(s): 397076286, 314966646 Code(s): Z96.641 - PRESENCE OF RIGHT ARTIFICIAL HIP JOINT Status: Acute Current Visit: No Annotation/Comment:: Revised on 06/11, admitted here for physical therapy and occupational therapy on 06/16/17. Patient doing very well from a rehabilitation standpoint. Continue rehabilitation. Pain controlled currently with Tylenol only. (2) HTN (hypertension) SNOMED Code(s): 09097122 Code(s): I10 - ESSENTIAL (PRIMARY) HYPERTENSION Status: Acute Current Visit: Yes Qualifiers: Hypertension type: essential hypertension Qualified Code(s): I10 - Essential (primary) hypertension Annotation/Comment:: Blood pressure marginally elevated. Increase norvasc and monitor. Clarify BP goal as outpatient. (3) RLS (restless legs syndrome) SNOMED Code(s): 72199757 Code(s): G25.81 - RESTLESS LEGS SYNDROME Status: Acute Current Visit: Yes Annotation/Comment:: On requip. Continue. (4) Chronic anemia SNOMED Code(s): 489012859 Code(s): D64.9 - ANEMIA, UNSPECIFIED Status: Acute Current Visit: No Annotation/Comment:: Recheck tomorrow. (5) HLD (hyperlipidemia) SNOMED Code(s): 48646966 Code(s): E78.5 - HYPERLIPIDEMIA, UNSPECIFIED Status: Acute Current Visit : Yes Qualifiers: Hyperlipidemia type: other hyperlipidemia Qualified Code(s): E78.4 - Other hyperlipidemia Annotation/Comment:: Stop statin at this time as not indicated by age/ comorbidity. - Problem List Review Problem List Initiated/Reviewed/Updated: Yes - My Orders Last 24 Hours: My Active Orders 06/21/17 15:07 amLODIPine [Norvasc] 5 mg PO DAILY 06/21/17 21:00 MO/Pet,Wh/Phenylephrine/Shk Lv [Preparation H Oint] 0 gm RECTAL BEDTIME 06/22/17 05:11 CBC WITH AUTO DIFF [HEME] AM COMPREHENSIVE METABOLIC PN,CMP [CHEM] AM VITAMIN B12 [CHEM] AM - Plan Plan:: Code status reviewed with patient and [id number]. Was made a full code by daughter, Joya, while she was here when having surgery but this doesn't agree with patient's advanced health care directives or goals of care. Will contact Joya tomorrow to clarify.
[2017-06-21] MEDS: traMADol 50 MG Tab PO PRN (20:29)
[2017-06-21] MEDS: Mirtazapine 15 MG Tab PO SCH (20:30)
[2017-06-21] MEDS: Sennosides 8.6 MG Tab PO SCH (20:31)
[2017-06-21] MEDS: Cholecalciferol (Vitamin D3) 1,000 Unit Tab PO SCH (20:31)
[2017-06-21] MEDS: rOPINIRole 0.5 MG Tab PO SCH (20:31)
[2017-06-22] MEDS: Mineral Oil/Petrolatum/Phenylephrine/Shark Liver Oil Oint 57 GM Tube RECTAL SCH ×2 (01:41→22:55)
[2017-06-22] MEDS: traMADol 50 MG Tab PO PRN (02:23)
[2017-06-22] MEDS: Levothyroxine 50 MCG Tab PO SCH (05:57)
[2017-06-22] MEDS: Pantoprazole 40 MG Tab.CR PO SCH (05:57)
[2017-06-22] MEDS: Acetaminophen 325 MG Tab PO PRN ×2 (08:23→17:03)
[2017-06-22] MEDS: Fish Oil/Omega-3 Fatty Acids 1 Gm Cap PO SCH (08:24)
[2017-06-22] MEDS: Valsartan 160 MG Tab PO SCH (08:24)
[2017-06-22] MEDS: Celecoxib 200 MG Cap PO SCH (08:24)
[2017-06-22] MEDS: Timolol Maleate 0.5% Ophth Soln 5 ML Bottle EYEBOTH SCH (08:24)
[2017-06-22] MEDS: Docusate Sodium 100 MG Cap PO SCH ×2 (08:24→20:14)
[2017-06-22] MEDS: Enoxaparin 40 MG/0.4 ML Syringe SUBCUT SCH (08:24)
[2017-06-22] MEDS: Calcium Carbonate/Vitamin D3 1250 MG-200 Unit Tab PO SCH ×2 (08:24→20:13)
[2017-06-22] MEDS: Chondroitin/Glucosamine Cap PO SCH ×2 (08:24→20:14)
[2017-06-22] MEDS: Memantine 10 MG Tab PO SCH ×2 (08:24→20:15)
[2017-06-22] MEDS: Thiamine 100 MG Tab PO SCH (08:24)
[2017-06-22] MEDS: Flaxseed Oil 1,000 MG Cap PO SCH (08:24)
[2017-06-22] MEDS: Lutein/Minerals/Vitamin C/Vitamin E Acetate Cap PO SCH (08:24)
[2017-06-22] MEDS: amLODIPine 5 MG Tab PO SCH (08:24)
[2017-06-22] MEDS: Magnesium Oxide 400 MG Tab PO SCH (08:24)
[2017-06-22] MEDS: Citalopram 10 MG Tab PO SCH (08:24)
--- NOTE | 2017-06-22 16:18 | PCM.PN ---
- General Info Date of Service: 06/22/17 Subjective Update: Doing well. No problems today. Walking in halls. Reviewed her course, code status and medical problems with Joya her daughter over the phone and her daughter Kaitlynn in person. Patient is a DNR/DNI per her expressed wishes. Reviewed hx of osteoporosis and she had a previous dexa scan in 2014 which showed femure Tscore -2.2 and forearm Tscore -4.2 with 10 year fx risk of 22%. Never was tx with bisphosphonate. Functional Status: Reports: Pain Controlled, Tolerating Diet, Ambulating, Urinating - Patient Data Vitals - Most Recent: Last Vital Signs Temp 36.7 C 06/22/17 07:34 Pulse 79 06/22/17 07:34 Resp 18 06/22/17 07:34 BP 141/78 H 06/22/17 08:24 Pulse Ox 96 06/22/17 07:34 Weight - Most Recent: 95.254 kg Lab Results Last 24 Hours: Laboratory Results - last 24 hr 06/22/17 06/22/17 06/22/17 Range/Units 06:10 06:10 06:10 WBC 5.2 (4.5-12.0) X10-3/uL RBC 3.29 (3.23-5.20) x10(6)uL Hgb 9.4 L (11.5-15.5) g/dL Hct 29.3 L (30.0-51.3) % MCV 89.0 (80-96) fL MCH 28.5 (27.7-33.6) pg MCHC 32.0 L (32.2-35.4) g/dL RDW 15.6 H (11.5-15.5) % Plt Count 299 (125-369) X10(3)uL MPV 8.4 (7.4-10.4) fL Neut % (Auto) 53.6 (46-82) % Lymph % (Auto) 32.2 (13-37) % Deuel % (Auto) 7.9 (4-12) % Eos % (Auto) 6 H (1.0-5.0) % Baso % (Auto) 1 (0-2) % Neut # (Auto) 2.8 (1.6-8.3) # Lymph # (Auto) 1.7 (0.6-5.0) # Deuel # (Auto) 0.4 (0.0-1.3) # Eos # (Auto) 0.3 (0.0-0.8) # Baso # (Auto) 0.0 (0.0-0.2) # Sodium 139 (135-145) mmol/L Potassium 3.4 L (3.5-5.3) mmol/L Chloride 107 (100-110) mmol/L Carbon Dioxide 25 (23-29) mmol/L BUN 12 (8-23) mg/dL Creatinine 0.6 (0.6-1.3) mg/dL Est Cr Clr Drug Dosing 60.64 mL/min Estimated GFR (MDRD) > 60 (>60) BUN/Creatinine Ratio 20.0 (9-20) Glucose 108 (80-116) mg/dL Calcium 8.8 (8.6-10.2) mg/dL Total Bilirubin 0.4 (0.1-1.3) mg/dL AST 17 D (5-27) IU/L ALT 10 L D (14-26) IU/L Alkaline Phosphatase 85 (56-112) IU/L Total Protein 6.4 (6.0-8.0) g/dL Albumin 3.3 (3.2-4.6) g/dL Globulin 3.1 g/dL Albumin/Globulin Ratio 1.1 Vitamin B12 380.0 (211-911) pg/mL Med Orders - Current: Current Medications Acetaminophen (Tylenol) 650 mg PO Q4H PRN PRN Reason: Pain Last Admin: 06/22/17 08:23 Dose: 650 mg Amlodipine Besylate (Norvasc) 5 mg PO DAILY [facility] Last Admin: 06/22/17 08:24 Dose: 5 mg Calcium Carbonate (Calcium Carbonate/Vitamin D 1250 Mg-200 Unit) 2 tab PO BID [facility] Last Admin: 06/22/17 08:24 Dose: 2 tab Celecoxib (Celebrex) 200 mg PO DAILY [facility] Last Admin: 06/22/17 08:24 Dose: 200 mg Cholecalciferol (Vitamin D3) 2,000 units PO BEDTIME [facility] Last Admin: 06/21/17 20:31 Dose: 2,000 units Citalopram Hydrobromide (Celexa) 10 mg PO DAILY [facility] Last Admin: 06/22/17 08:24 Dose: 10 mg Cyanocobalamin (Vitamin B12) 1,000 mcg PO DAILY [facility] Docusate Sodium (Colace) 100 mg PO BID [facility] Last Admin: 06/22/17 08:24 Dose: 100 mg Enoxaparin Sodium (Lovenox) 40 mg SUBCUT DAILY [facility] Stop: 07/12/17 09:01 Last Admin: 06/22/17 08:24 Dose: 40 mg Fish Oil (Fish Oil) 1 gm PO DAILY [facility] Last Admin: 06/22/17 08:24 Dose: 1 gm Flaxseed (Flaxseed Oil) 1,000 mg PO DAILY [facility] Last Admin: 06/22/17 08:24 Dose: 1,000 mg Glucosamine/Chondroitin (Glucosamine-Chondroitin 500-400 Capsule) 1 cap PO BID [facility] Last Admin: 06/22/17 08:24 Dose: 1 cap Levothyroxine Sodium (Synthroid) 50 mcg PO 0600 [facility] Last Admin: 06/22/17 05:57 Dose: 50 mcg Magnesium Oxide (Magnesium Oxide) 400 mg PO DAILY [facility] Last Admin: 06/22/17 08:24 Dose: 400 mg Memantine (Namenda) 10 mg PO BID [facility] Last Admin: 06/22/17 08:24 Dose: 10 mg Mirtazapine (Remeron) 7.5 mg PO BEDTIME [facility] Last Admin: 06/21/17 20:30 Dose: 7.5 mg Pantoprazole Sodium (Protonix) 40 mg PO DAILY@0600 [facility] Last Admin: 06/22/17 05:57 Dose: 40 mg Phenyleph/Shark Oil/Min Oil/Petrol (Preparation H Oint) 0 gm RECTAL BEDTIME [facility] Last Admin: 06/22/17 01:41 CDT Dose: Not Given Polyethylene Glycol (Miralax) 17 gm PO DAILY PRN PRN Reason: Constipation Ropinirole HCl (Requip) 0.5 mg PO BEDTIME [facility] Last Admin: 06/21/17 20:31 Dose: 0.5 mg Senna (Senna) 17.2 mg PO BEDTIME [facility] Last Admin: 06/21/17 20:31 Dose: 17.2 mg Thiamine HCl (Vitamin B-1) 100 mg PO DAILY [facility] Last Admin: 06/22/17 08:24 Dose: 100 mg Timolol Maleate (Timoptic 0.5% Ophth Soln) 0 ml EYEBOTH DAILY [facility] Last Admin: 06/22/17 08:24 Dose: 1 drop Tramadol HCl (Ultram) 50 mg PO Q6H PRN PRN Reason: MODERATE PAIN Last Admin: 06/22/17 02:23 Dose: 50 mg Valsartan (Diovan) 160 mg PO DAILY [facility] Last Admin: 06/22/17 08:24 Dose: 160 mg Vit C/Vit E/Zinc/Copper/Lutein (Ocuvite Lutein) 1 each PO DAILY [facility] Last Admin: 06/22/17 08:24 Dose: 1 each Discontinued Medications Acetaminophen (Tylenol) 650 mg PO Q8H [facility] Last Admin: 06/16/17 18:56 Dose: 650 mg Acetaminophen (Tylenol) 650 mg PO TID@0100,0900,1700 [facility] Last Admin: 06/19/17 08:14 Dose: 650 mg Acetaminophen/Diphenhydramine HCl (Tylenol Pm Extra Strength) 2 tab PO BEDTIME PRN PRN Reason: Sleep Last Admin: 06/19/17 20:21 Dose: 2 tab Amlodipine Besylate (Norvasc) 2.5 mg PO DAILY [facility] Last Admin: 06/21/17 08:37 Dose: 2.5 mg Oxycodone HCl (Oxycodone) 5 mg PO Q4H PRN PRN Reason: severe pain Last Admin: 06/20/17 05:30 Dose: 5 mg Polyethylene Glycol (Miralax) 17 gm PO DAILY [facility] Last Admin: 06/19/17 08:13 Dose: Not Given Simvastatin (Zocor) 20 mg PO BEDTIME [facility] Last Admin: 06/20/17 20:42 Dose: 20 mg - Exam General: Alert, Oriented HEENT: Pupils Equal, Pupils Reactive Neck: Supple Lungs: Clear to Auscultation, Normal Respiratory Effort Cardiovascular: Regular Rate, Regular Rhythm, No Murmurs GI/Abdominal Exam: Normal Bowel Sounds, Soft, Non-Tender, No Distention Extremities: Pedal Edema (2+ today, chronic. Has been sitting in the chair most of the day.) - Problem List & Annotations (1) Status post right hip replacement SNOMED Code(s): 235793589, 841646520 Code(s): Z96.641 - PRESENCE OF RIGHT ARTIFICIAL HIP JOINT Status: Acute Current Visit: No Annotation/Comment:: Revised on 06/11, admitted here for physical therapy and occupational therapy on 06/16/17. Patient doing very well from a rehabilitation standpoint. Continue rehabilitation. Pain controlled currently with Tylenol only. (2) HTN (hypertension) SNOMED Code(s): 84483724 Code(s): I10 - ESSENTIAL (PRIMARY) HYPERTENSION Status: Acute Current Visit: Yes Qualifiers: Hypertension type: essential hypertension Qualified Code(s): I10 - Essential (primary) hypertension Annotation/Comment:: Blood pressure marginally elevated. Increase norvasc and monitor. Clarify BP goal as outpatient. (3) RLS (restless legs syndrome) SNOMED Code(s): 91386339 Code(s): G25.81 - RESTLESS LEGS SYNDROME Status: Acute Current Visit: Yes Annotation/Comment:: On requip. Continue. (4) Chronic anemia SNOMED Code(s): 328558227 Code(s): D64.9 - ANEMIA, UNSPECIFIED Status: Acute Current Visit: No Annotation/Comment:: Hgb up from 8.6 to 9.4. (5) HLD (hyperlipidemia) SNOMED Code(s): 49729244 Code(s): E78.5 - HYPERLIPIDEMIA, UNSPECIFIED Status: Acute Current Visit : Yes Qualifiers: Hyperlipidemia type: other hyperlipidemia Qualified Code(s): E78.4 - Other hyperlipidemia Annotation/Comment:: Stop statin at this time as not indicated by age/ comorbidity. (6) Osteoporosis SNOMED Code(s): 16682244 Code(s): M81.0 - AGE-RELATED OSTEOPOROSIS W/O CURRENT PATHOLOGICAL FRACTURE Status: Acute Current Visit: Yes Annotation/Comment:: I don't see any reason not to treat with bisphosphonate therapy. Will start fosamax tomorrow and see if she tolerates. If not, can do once yearly IV dose instead. - Problem List Review Problem List Initiated/Reviewed/Updated: Yes - My Orders Last 24 Hours: My Active Orders 06/21/17 21:00 MO/Pet,Wh/Phenylephrine/Shk Lv [Preparation H Oint] 0 gm RECTAL BEDTIME 06/22/17 13:44 Code Status [Resuscitation Status] Routine 06/23/17 08:00 [place] Sutures Removal [RC] ROUTINE 06/23/17 09:00 Cyanocobalamin (Vitamin B12) [Vitamin B12] 1,000 mcg PO DAILY - Plan Plan:: Code status reviewed with patient and [id number] and Joya, daughter. Patient is DNR/DNI and does not want to be kept alive by tube feeds or machines.
[2017-06-22] MEDS: Mirtazapine 15 MG Tab PO SCH (20:15)
[2017-06-22] MEDS: Sennosides 8.6 MG Tab PO SCH (20:15)
[2017-06-22] MEDS: rOPINIRole 0.5 MG Tab PO SCH (20:15)
[2017-06-22] MEDS: Cholecalciferol (Vitamin D3) 1,000 Unit Tab PO SCH (20:16)
[2017-06-23] MEDS: traMADol 50 MG Tab PO PRN ×2 (05:55→21:07)
[2017-06-23] MEDS: Pantoprazole 40 MG Tab.CR PO SCH (05:56)
[2017-06-23] MEDS: Levothyroxine 50 MCG Tab PO SCH (05:56)
[2017-06-23] MEDS ORDERED: Alendronate 70 MG Tab PO SCH (06:00)
[2017-06-23] MEDS: Celecoxib 200 MG Cap PO SCH (09:55)
[2017-06-23] MEDS: Fish Oil/Omega-3 Fatty Acids 1 Gm Cap PO SCH (09:56)
[2017-06-23] MEDS: Docusate Sodium 100 MG Cap PO SCH ×2 (09:56→20:11)
[2017-06-23] MEDS: Citalopram 10 MG Tab PO SCH (09:56)
[2017-06-23] MEDS: Calcium Carbonate/Vitamin D3 1250 MG-200 Unit Tab PO SCH ×2 (09:56→20:10)
[2017-06-23] MEDS: Chondroitin/Glucosamine Cap PO SCH ×2 (09:57→20:11)
[2017-06-23] MEDS: Valsartan 160 MG Tab PO SCH (09:57)
[2017-06-23] MEDS: Magnesium Oxide 400 MG Tab PO SCH (09:57)
[2017-06-23] MEDS: Flaxseed Oil 1,000 MG Cap PO SCH (09:57)
[2017-06-23] MEDS: Enoxaparin 40 MG/0.4 ML Syringe SUBCUT SCH (09:57)
[2017-06-23] MEDS: Timolol Maleate 0.5% Ophth Soln 5 ML Bottle EYEBOTH SCH (09:58)
[2017-06-23] MEDS: Cyanocobalamin (Vitamin B12) 1,000 MCG Tab PO SCH (09:58)
[2017-06-23] MEDS: Lutein/Minerals/Vitamin C/Vitamin E Acetate Cap PO SCH (09:58)
[2017-06-23] MEDS: Memantine 10 MG Tab PO SCH ×2 (09:58→20:12)
[2017-06-23] MEDS: amLODIPine 5 MG Tab PO SCH (09:58)
[2017-06-23] MEDS: Thiamine 100 MG Tab PO SCH (09:58)
--- NOTE | 2017-06-23 15:32 | PCM.SN ---
- Free Text/Narrative Note: Patient is an 86-year-old female who was admitted on 06/16/17 after a right hip arthroplasty at [place]. We started her on Fosamax today. She did well with this. Blood pressures still marginally controlled at 140s systolic. No complaints today. Feels well. Anticipates her discharge tomorrow. Daughter will be here to accompany her to her home and stay with her for the first week.
[2017-06-23] MEDS: Mirtazapine 15 MG Tab PO SCH (20:13)
[2017-06-23] MEDS: Sennosides 8.6 MG Tab PO SCH (20:13)
[2017-06-23] MEDS: rOPINIRole 0.5 MG Tab PO SCH (20:13)
[2017-06-23] MEDS: Cholecalciferol (Vitamin D3) 1,000 Unit Tab PO SCH (20:14)
[2017-06-23] MEDS ORDERED: Mineral Oil/Petrolatum/Phenylephrine/Shark Liver Oil Oint 57 GM Tube RECTAL SCH (21:00)
[2017-06-23] MEDS: Acetaminophen 325 MG Tab PO PRN (21:07)
[2017-06-24] MEDS: Pantoprazole 40 MG Tab.CR PO SCH (05:47)
[2017-06-24] MEDS: Levothyroxine 50 MCG Tab PO SCH (05:48)
[2017-06-24 07:45] VITALS: BP 147/80
[2017-06-24] MEDS: Flaxseed Oil 1,000 MG Cap PO SCH (08:38)
[2017-06-24] MEDS: Valsartan 160 MG Tab PO SCH (08:38)
[2017-06-24] MEDS: Calcium Carbonate/Vitamin D3 1250 MG-200 Unit Tab PO SCH (08:38)
[2017-06-24] MEDS: Fish Oil/Omega-3 Fatty Acids 1 Gm Cap PO SCH (08:38)
[2017-06-24] MEDS: Docusate Sodium 100 MG Cap PO SCH (08:39)
[2017-06-24] MEDS: Memantine 10 MG Tab PO SCH (08:39)
[2017-06-24] MEDS: Celecoxib 200 MG Cap PO SCH (08:39)
[2017-06-24] MEDS: amLODIPine 5 MG Tab PO SCH (08:39)
[2017-06-24] MEDS: Magnesium Oxide 400 MG Tab PO SCH (08:39)
[2017-06-24] MEDS: Thiamine 100 MG Tab PO SCH (08:39)
[2017-06-24] MEDS: Chondroitin/Glucosamine Cap PO SCH (08:39)
[2017-06-24] MEDS: Enoxaparin 40 MG/0.4 ML Syringe SUBCUT SCH (08:40)
[2017-06-24] MEDS: Citalopram 10 MG Tab PO SCH (08:40)
[2017-06-24] MEDS: Cyanocobalamin (Vitamin B12) 1,000 MCG Tab PO SCH (08:40)
[2017-06-24] MEDS: Lutein/Minerals/Vitamin C/Vitamin E Acetate Cap PO SCH (08:40)
[2017-06-24] MEDS: Timolol Maleate 0.5% Ophth Soln 5 ML Bottle EYEBOTH SCH (08:41)
[2017-06-24] MEDS: traMADol 50 MG Tab PO PRN (08:51)
[2017-06-24] MEDS: Acetaminophen 325 MG Tab PO PRN (11:54)
--- NOTE | 2017-06-24 12:38 | PCM.DCSUM1 ---
Discharge Summary - Hospital Course Free Text/Narrative:: Date of admission: 06/16/17 Date of discharge: 06/24/2017 Admission diagnosis: Status post right hip arthroplasty, need for rehabilitation. Discharge diagnosis: Same Consults: Physical therapy consult, occupational therapy consult. Procedures: None History of present illness: Patient is an 86-year-old female who was admitted to swing bed on 06/16/17 after right hip revision on 06/11 at [place]. She apparently broke her femur back in 2014, had a kaden and pin placed, and this has given her problems ever since. The decision was finally made to do a revision surgery because of pain. She required 2 units packed red blood cells after surgery. Also has underlying dementia. Hospital course: Patient did very well throughout her hospital stay. Pain was well controlled with just Tylenol alone at the time of discharge. Anemia postoperatively was 8.6 and hemoglobin came up to 9.4 prior to discharge. Did make a number of changes to her chronic medical issues as noted below. Please see documentation by problem. Of note, patient had a previous DEXA scan which showed a T score of -2.2 at the femur and -4.2 at the forearm and the decision was made after discussing at length with the family risks and benefits to start Fosamax therapy to promote bone healing. Would recommend follow-up DEXA scan in 12 months. Condition on the day of discharge: Patient was feeling very well at the time of discharge. No chest pain, no shortness of breath, no nausea, no vomiting. Bowels moving well. She was excited to go home. Physical exam at the time of discharge: See below. Discharge disposition: To home which is at [facility]; home health to follow and physical therapy to continue at home. Her daughter will be staying with her for the first week. The encounter on the day of discharge was for right hip arthroplasty which is the primary reason for home care services. The patient will require physical therapy and is homebound. Anticipate 4-6 weeks of home services required for the hip. The patient also has underlying dementia which may continue to worsen requiring ongoing home services from home health. Discharge instructions: Discharged home with home health. Physical therapy to assess and treat. Patient will need Lovenox through 07/12/17. Follow-up DEXA scan recommended in 12 months if warranted based on the patient' s status at that time. They can discuss this further with the patient's primary care provider. Follow-up with PCP in one week. We'll check CBC, BMP at that visit. - Discharge Data Discharge Date: 06/24/17 Discharge Disposition: Home, W Home Health Agency 06 Condition: Good - Discharge Diagnosis/Problem(s) (1) Status post right hip replacement SNOMED Code(s): 616854098, 492178635 ICD Code: Z96.641 - PRESENCE OF RIGHT ARTIFICIAL HIP JOINT Status: Acute Current Visit: No Problem Details: Revised on 06/11, admitted for physical therapy and occupational therapy on 06/16/17. D/C to home with home health to follow for PT. Tylenol only for pain. (2) HTN (hypertension) SNOMED Code(s): 90923197 ICD Code: I10 - ESSENTIAL (PRIMARY) HYPERTENSION Status: Acute Current Visit: Yes Problem Details: Blood pressure marginally elevated. Norvasc increased with BPs in the 140s systolic. Clarify BP goal as outpatient. Qualifiers: Hypertension type: essential hypertension Qualified Code(s): I10 - Essential (primary) hypertension (3) RLS (restless legs syndrome) SNOMED Code(s): 54014924 ICD Code: G25.81 - RESTLESS LEGS SYNDROME Status: Acute Current Visit: Yes Problem Details: On requip. Continue. (4) Chronic anemia SNOMED Code(s): 424801527 ICD Code: D64.9 - ANEMIA, UNSPECIFIED Status: Acute Current Visit: No Problem Details: Hgb up from 8.6 to 9.4. (5) HLD (hyperlipidemia) SNOMED Code(s): 71575521 ICD Code: E78.5 - HYPERLIPIDEMIA, UNSPECIFIED Status: Acute Current Visit : Yes Problem Details: Stop statin at this time as not indicated by age/ comorbidity. Qualifiers: Hyperlipidemia type: other hyperlipidemia Qualified Code(s): E78.4 - Other hyperlipidemia (6) Osteoporosis SNOMED Code(s): 10427439 ICD Code: M81.0 - AGE-RELATED OSTEOPOROSIS W/O CURRENT PATHOLOGICAL FRACTURE Status: Acute Current Visit: Yes Problem Details: Tolerated initiation of fosamax on Mondays. Continue as outpatient. (7) B12 deficiency SNOMED Code(s): 678855973 ICD Code: E53.8 - DEFICIENCY OF OTHER SPECIFIED B GROUP VITAMINS Status: Acute Current Visit: Yes Problem Details: Level 380 on check. PO supplementation started. Follow annually as needed. - Patient Summary/Data Consults: Consultations 06/16/17 16:09 OT Evaluation and Treatment [CONS] Routine Please Evaluate and Treat. OT Reason for Consult: ADL's This query below is only for informational purposes and is not editable. Admission Diagnosis/Problem: Weakness PT Evaluation and Treatment [CONS] Routine Please Evaluate and Treat. PT Reason for Consult: Ambulation This query below is only for informational purposes and is not editable. Admission Diagnosis/Problem: Weakness - Patient Instructions Diet: Heart Healthy Diet, Low Sodium Activity: Cough & Deep Breathe, Full Weight Bearing Notify Provider of: Fever, Increased Pain, Swelling and Redness, Drainage, Nausea and/or Vomiting - Discharge Plan Prescriptions/Med Rec: Alendronate [Fosamax] 70 mg PO Q7D@0600 90 Days #12 tablet amLODIPine [Norvasc] 5 mg PO DAILY 30 Days #30 tablet Cyanocobalamin (Vitamin B12) [Vitamin B12] 1,000 mcg PO DAILY 90 Days #90 tablet Home Medications: Home Meds Fish Oil/DHA/EPA [Fish Oil 1,200 MG] 1,200 mg PO DAILY 02/05/15 [History] Multivitamin W-Minerals/Lutein [Vision Plus Lutein Vitamin] 1 tab PO DAILY 06/02 [History] Celecoxib [CeleBREX] 200 mg PO DAILY cap 06/05/15 [Rx] Chondroitin/Glucosamine [Glucosamine-Chondroitin] 1 cap PO BID cap 06/05/15 [Rx ] Docusate Sodium [Colace] 100 mg PO BID cap 06/05/15 [Rx] Levothyroxine [Synthroid] 50 mcg PO 0600 tablet 06/05/15 [Rx] Magnesium Oxide 400 mg PO DAILY tablet 06/05/15 [Rx] Memantine HCl [Namenda Xr] 28 mg PO DAILY cap.er 06/05/15 [Rx] Mirtazapine [Remeron] 7.5 mg PO BEDTIME tablet 06/05/15 [Rx] Omeprazole 20 mg PO DAILY@0600 cap.cr 06/05/15 [Rx] Sennosides [Senna] 17.2 mg PO BEDTIME tablet 06/05/15 [Rx] Thiamine [Vitamin B-1] 100 mg PO DAILY tablet 06/05/15 [Rx] rOPINIRole [Requip] 0.5 mg PO BEDTIME tablet 06/05/15 [Rx] Calcium Citrate/Vitamin D3 [Calcium Citrate - Vit D Tablet] 2 tab PO BID [History] Cholecalciferol (Vitamin D3) [Vitamin D3] 2,000 units PO BEDTIME 06/16/17 [ History] Citalopram [Citalopram HBr] 10 mg PO DAILY 06/16/17 [History] Flaxseed 1200mg 1,200 mg PO DAILY 06/16/17 [History] Polyethylene Glycol 3350 [MiraLAX] 17 gm PO DAILY 06/16/17 [History] Timolol Maleate [Timoptic 0.5% Ophth Soln] 1 drop EYEBOTH DAILY 06/16/17 [ History] Valsartan [Diovan] 160 mg PO DAILY 06/16/17 [History] Acetaminophen [Tylenol] 650 mg PO Q4H PRN tablet 06/24/17 [Rx] Alendronate [Fosamax] 70 mg PO Q7D@0600 90 Days #12 tablet 06/24/17 [Rx] Cyanocobalamin (Vitamin B12) [Vitamin B12] 1,000 mcg PO DAILY 90 Days #90 tablet 06/24/17 [Rx] Enoxaparin Sodium [Lovenox] 40 mg SUBCUT DAILY 18 Days #18 06/24/17 [Rx] MO/Pet,Wh/Phenylephrine/Shk Lv [Preparation H Oint] 0 gm RECTAL BEDTIME tube [Rx] amLODIPine [Norvasc] 5 mg PO DAILY 30 Days #30 tablet 06/24/17 [Rx] Patient Handouts: Venous Thromboembolism Prevention Referrals: Zachery Dixon MD [Primary Care Provider] - - Patient Data Vitals - Most Recent: Last Vital Signs Temp 36.8 C 06/24/17 07:43 Pulse 79 06/24/17 07:43 Resp 18 06/24/17 07:43 BP 147/80 H 06/24/17 08:39 Pulse Ox 95 06/24/17 07:43 Weight - Most Recent: 95.254 kg Med Orders - Current: Current Medications Acetaminophen (Tylenol) 650 mg PO Q4H PRN PRN Reason: Pain Last Admin: 06/24/17 11:54 Dose: 650 mg Alendronate Sodium (Fosamax) 70 mg PO Q7D@0600 [facility] Last Admin: 06/23/17 05:28 Dose: 70 mg Amlodipine Besylate (Norvasc) 5 mg PO DAILY [facility] Last Admin: 06/24/17 08:39 Dose: 5 mg Calcium Carbonate (Calcium Carbonate/Vitamin D 1250 Mg-200 Unit) 2 tab PO BID [facility] Last Admin: 06/24/17 08:38 Dose: 2 tab Celecoxib (Celebrex) 200 mg PO DAILY [facility] Last Admin: 06/24/17 08:39 Dose: 200 mg Cholecalciferol (Vitamin D3) 2,000 units PO BEDTIME [facility] Last Admin: 06/23/17 20:14 Dose: 2,000 units Citalopram Hydrobromide (Celexa) 10 mg PO DAILY [facility] Last Admin: 06/24/17 08:40 Dose: 10 mg Cyanocobalamin (Vitamin B12) 1,000 mcg PO DAILY [facility] Last Admin: 06/24/17 08:40 Dose: 1,000 mcg Docusate Sodium (Colace) 100 mg PO BID [facility] Last Admin: 06/24/17 08:39 Dose: 100 mg Enoxaparin Sodium (Lovenox) 40 mg SUBCUT DAILY [facility] Stop: 07/12/17 09:01 Last Admin: 06/24/17 08:40 Dose: 40 mg Fish Oil (Fish Oil) 1 gm PO DAILY [facility] Last Admin: 06/24/17 08:38 Dose: 1 gm Flaxseed (Flaxseed Oil) 1,000 mg PO DAILY [facility] Last Admin: 06/24/17 08:38 Dose: 1,000 mg Glucosamine/Chondroitin (Glucosamine-Chondroitin 500-400 Capsule) 1 cap PO BID [facility] Last Admin: 06/24/17 08:39 Dose: 1 cap Levothyroxine Sodium (Synthroid) 50 mcg PO 0600 [facility] Last Admin: 06/24/17 05:48 Dose: 50 mcg Magnesium Oxide (Magnesium Oxide) 400 mg PO DAILY [facility] Last Admin: 06/24/17 08:39 Dose: 400 mg Memantine (Namenda) 10 mg PO BID [facility] Last Admin: 06/24/17 08:39 Dose: 10 mg Mirtazapine (Remeron) 7.5 mg PO BEDTIME [facility] Last Admin: 06/23/17 20:13 Dose: 7.5 mg Pantoprazole Sodium (Protonix) 40 mg PO DAILY@0600 [facility] Last Admin: 06/24/17 05:47 Dose: 40 mg Phenyleph/Shark Oil/Min Oil/Petrol (Preparation H Oint) 0 gm RECTAL BEDTIME [facility] Last Admin: 06/23/17 23:50 Dose: Not Given Polyethylene Glycol (Miralax) 17 gm PO DAILY PRN PRN Reason: Constipation Ropinirole HCl (Requip) 0.5 mg PO BEDTIME [facility] Last Admin: 06/23/17 20:13 Dose: 0.5 mg Senna (Senna) 17.2 mg PO BEDTIME [facility] Last Admin: 06/23/17 20:13 Dose: 17.2 mg Thiamine HCl (Vitamin B-1) 100 mg PO DAILY [facility] Last Admin: 06/24/17 08:39 Dose: 100 mg Timolol Maleate (Timoptic 0.5% Ophth Soln) 0 ml EYEBOTH DAILY [facility] Last Admin: 06/24/17 08:41 Dose: 1 drop Tramadol HCl (Ultram) 50 mg PO Q6H PRN PRN Reason: MODERATE PAIN Last Admin: 06/24/17 08:51 Dose: 50 mg Valsartan (Diovan) 160 mg PO DAILY [facility] Last Admin: 06/24/17 08:38 Dose: 160 mg Vit C/Vit E/Zinc/Copper/Lutein (Ocuvite Lutein) 1 each PO DAILY [facility] Last Admin: 06/24/17 08:40 Dose: 1 each Discontinued Medications Acetaminophen (Tylenol) 650 mg PO Q8H [facility] Last Admin: 06/16/17 18:56 Dose: 650 mg Acetaminophen (Tylenol) 650 mg PO TID@0100,0900,1700 [facility] Last Admin: 06/19/17 08:14 Dose: 650 mg Acetaminophen/Diphenhydramine HCl (Tylenol Pm Extra Strength) 2 tab PO BEDTIME PRN PRN Reason: Sleep Last Admin: 06/19/17 20:21 Dose: 2 tab Amlodipine Besylate (Norvasc) 2.5 mg PO DAILY [facility] Last Admin: 06/21/17 08:37 Dose: 2.5 mg Oxycodone HCl (Oxycodone) 5 mg PO Q4H PRN PRN Reason: severe pain Last Admin: 06/20/17 05:30 Dose: 5 mg Phenyleph/Shark Oil/Min Oil/Petrol (Preparation H Oint) 0 gm RECTAL BEDTIME [facility] Last Admin: 06/22/17 22:55 Dose: Not Given Polyethylene Glycol (Miralax) 17 gm PO DAILY [facility] Last Admin: 06/19/17 08:13 Dose: Not Given Simvastatin (Zocor) 20 mg PO BEDTIME [facility] Last Admin: 06/20/17 20:42 Dose: 20 mg - Exam General: Reports: Alert, Oriented, Cooperative, No Acute Distress HEENT: Reports: Pupils Equal, Pupils Reactive Neck: Reports: Supple Lungs: Reports: Clear to Auscultation, Normal Respiratory Effort Cardiovascular: Reports: Regular Rate, Regular Rhythm, No Murmurs GI/Abdominal Exam: Normal Bowel Sounds, Soft, Non-Tender, No Distention Extremities: Pedal Edema (trace.) Skin: Reports: Warm, Dry, Intact *Q Meaningful Use (DIS) - VTE *Q VTE Criteria *Q: - Stroke *Q Stroke Criteria *Q: - AMI *Q AMI Criteria *Q:
--- NOTE | 2017-06-25 10:56 | CR ---
INDICATION: Post-op follow-up right hip arthroplasty. RIGHT HIP: Four images of the right hip were obtained 06/24/2017 and compared with 04/10/2017, again revealing a total hip arthroplasty with a change in the femoral component, which now appears to be surrounded by bone cement. Position and alignment appears to be satisfactory. A definite complicating process was not identified. PHILD
== END 2017-06-24 16:45 | disposition home health service (06) | DRG 948 ==
LOC: FB.MS 13:35
PROVIDERS: ADMIT Family Medicine; ATTEND Family Medicine
DX: R53.1 Weakness (principal); Z48.89 Encounter for other specified surgical aftercare; Z98.890 Other specified postprocedural states; I10 Essential (primary) hypertension; Z66 Do not resuscitate; E78.5 Hyperlipidemia, unspecified; G25.81 Restless legs syndrome; F39 Unspecified mood [affective] disorder; K59.00 Constipation, unspecified; F03.90 Unspecified dementia, unspecified severity, without behavioral disturbance, psychotic disturbance, mood disturbance, and anxiety; E03.9 Hypothyroidism, unspecified; D64.9 Anemia, unspecified; Z98.84 Bariatric surgery status; Z87.891 Personal history of nicotine dependence; Z87.440 Personal history of urinary (tract) infections; H54.7 Unspecified visual loss; Z96.641 Presence of right artificial hip joint; Z96.659 Presence of unspecified artificial knee joint; Z91.030 Bee allergy status; Z88.5 Allergy status to narcotic agent; Z88.0 Allergy status to penicillin; Z88.8 Allergy status to other drugs, medicaments and biological substances; Z91.048 Other nonmedicinal substance allergy status; M81.0 Age-related osteoporosis without current pathological fracture; E53.8 Deficiency of other specified B group vitamins
CPT/HCPCS: 36415; 73502-RT; 80053; 82607; 85025; 97110-GO; 97110-GP; 97116-GP; 97161-GP; 97165-GO; 97530-GO; 97530-GO-KX; 97530-GP; 97535-GO; A9270-GY; J1650

== ENCOUNTER 2019-04-17 12:16 | Emergency (ER) | payer MEDICARE ==
[2019-04-17 12:26] VITALS: BP 156/64
--- NOTE | 2019-04-17 12:35 | EDM.PDOC ---
ED HPI GENERAL MEDICAL PROBLEM - General Chief Complaint: ENT Problem Stated Complaint: SOMETHING IN RIGHT EYE Time Seen by Provider: 04/17/19 12:33 Source of Information: Reports: Patient History Limitations: Reports: No Limitations - History of Present Illness INITIAL COMMENTS - FREE TEXT/NARRATIVE: 88-year-old female who presents with her son from a local assisted living with reports of right I pain this morning and the complaint that she felt that something was in her right eye. She has no complaints now. She is a very poor historian with memory issues and dementia and cannot provide me with really any history. The history comes from the son who reports what the nursing staff at the assisted living had told him. The patient denies any pain right now. She appears in no discomfort and appears at a 0/10 level of discomfort by observation. She is reporting no other complaints and tells me that she feels fine. The son reports that there were no other complaints reported by the nursing staff at the assisted living. No known trauma. No fevers noted. No vomiting. No nausea. She denies any vision changes at present. The history is limited as mentioned above. There are no other associated signs or symptoms. There are no other modifying factors. 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 (see below) (Nothing) - Related Data Allergies Allergy/AdvReac Type Severity Reaction Status Date / Time adhesive tape Allergy Rash Verified 04/17/19 12:26 bee venom protein (honey bee) Allergy Swelling Verified 04/17/19 12:26 donepezil HCl [From Aricept] Allergy Rash Verified 04/17/19 12:26 lisinopril Allergy Cough Verified 04/17/19 12:26 morphine Allergy Hallucinati Verified 04/17/19 12:26 ons Penicillins Allergy Itching Verified 04/17/19 12:26 Home Meds: Home Meds Fish Oil/DHA/EPA [Fish Oil 1,200 MG] 1,200 mg PO DAILY 02/05/15 [History] Multivitamin W-Minerals/Lutein [Vision Plus Lutein Vitamin] 1 tab PO DAILY 06/02 [History] Celecoxib [CeleBREX] 200 mg PO DAILY cap 06/05/15 [Rx] Chondroitin/Glucosamine [Glucosamine-Chondroitin] 1 cap PO BID cap 06/05/15 [Rx ] Docusate Sodium [Colace] 100 mg PO BID cap 06/05/15 [Rx] Levothyroxine [Synthroid] 50 mcg PO 0600 tablet 06/05/15 [Rx] Magnesium Oxide 400 mg PO DAILY tablet 06/05/15 [Rx] Memantine HCl [Namenda Xr] 28 mg PO DAILY cap.er 06/05/15 [Rx] Mirtazapine [Remeron] 7.5 mg PO BEDTIME tablet 06/05/15 [Rx] Omeprazole 20 mg PO DAILY@0600 cap.cr 06/05/15 [Rx] Sennosides [Senna] 17.2 mg PO BEDTIME tablet 06/05/15 [Rx] Thiamine [Vitamin B-1] 100 mg PO DAILY tablet 06/05/15 [Rx] rOPINIRole [Requip] 0.5 mg PO BEDTIME tablet 06/05/15 [Rx] Calcium Citrate/Vitamin D3 [Calcium Citrate - Vit D Tablet] 2 tab PO BID [History] Cholecalciferol (Vitamin D3) [Vitamin D3] 2,000 units PO BEDTIME 06/16/17 [ History] Citalopram [Citalopram HBr] 10 mg PO DAILY 06/16/17 [History] Flaxseed 1200mg 1,200 mg PO DAILY 06/16/17 [History] Polyethylene Glycol 3350 [MiraLAX] 17 gm PO DAILY 06/16/17 [History] Timolol Maleate [Timoptic 0.5% Ophth Soln] 1 drop EYEBOTH DAILY 06/16/17 [ History] Valsartan [Diovan] 160 mg PO DAILY 06/16/17 [History] Acetaminophen [Tylenol] 650 mg PO Q4H PRN tablet 06/24/17 [Rx] Alendronate [Fosamax] 70 mg PO Q7D@0600 90 Days #12 tablet 06/24/17 [Rx] Cyanocobalamin (Vitamin B12) [Vitamin B12] 1,000 mcg PO DAILY 90 Days #90 tablet 06/24/17 [Rx] Enoxaparin Sodium [Lovenox] 40 mg SUBCUT DAILY 18 Days #18 06/24/17 [Rx] MO/Pet,Wh/Phenylephrine/Shk Lv [Preparation H Oint] 0 gm RECTAL BEDTIME tube [Rx] amLODIPine [Norvasc] 5 mg PO DAILY 30 Days #30 tablet 06/24/17 [Rx] Erythromycin Base [Erythromycin 0.5% Ophth Oint] 1 applic EYERT BID 5 Days #1 tube 04/17/19 [Rx] Zirgan Opthalamic Gel 1 dose EYERT 5XDAY 7 Days #1 each 04/17/19 [Rx] Past Medical History HEENT History: Reports: Cataract, Impaired Vision, Other (See Below) (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 Has had 2 U blood, 2 iron infusions. Acute blood loss anemia- may 2017 (received 2 units) Immunologic History: Reports: Other (See Below) (Last tetanus immunization was in 2014, so the patient is up-to-date.) - Past Surgical History GI Surgical History: Reports: Appendectomy, Bariatric Procedure, Other (See Below) Other GI Surgeries/Procedures: gastric bypass 2x- 40 years ago Endocrine Surgical History: Reports: Thyroidectomy Other Endocrine Surgeries/Procedures: 40 years ago Musculoskeletal Surgical History: Reports: Hip Replacement, Knee Replacement, Other (See Below) Other Musculoskeletal Surgeries/Procedures:: Hip arthroplasty 2014; carpal tunnel surgery Social & Family History - Tobacco Use Smoking Status *Q: Never Smoker - Caffeine Use Caffeine Use: Reports: Coffee Other Caffeine Use: 1 coffee cup - Alcohol Use Alcohol Use History: Yes Alcohol Use Frequency: Rarely - Living Situation & Occupation Living situation: Reports: Assisted Living Social History Comment: She is here with her son. ED ROS ENT - Review of Systems Review Of Systems: See Below (It should be noted that this is somewhat limited because the patient has memory issues but she does answer the questions as below.) Constitutional: Reports: No Symptoms HEENT: Reports: Eye Pain (Earlier as above) Respiratory: Reports: No Symptoms Cardiovascular: Reports: No Symptoms Endocrine: Reports: No Symptoms GI/Abdominal: Reports: No Symptoms : Reports: Dysuria (Patient does report that she has mild burning with urination.) Musculoskeletal: Reports: No Symptoms Skin: Reports: No Symptoms Neurological: Reports: No Symptoms Immunologic: Reports: Other (She is up-to-date on her tetanus immunization.) ED EXAM, ENT - Physical Exam Exam: See Below Exam Limited By: No Limitations General Appearance: Alert, WD/WN, No Apparent Distress Eye Exam: Right Eye: Corneal Abrasion (Minimal forcing uptake in the superior and lateral aspect with no foreign body found.), Other (Mild conjunctival injection.), Bilateral Eye: EOMI, PERRL Ears: Normal External Exam, Hearing Grossly Normal Nose: Normal Inspection, Normal Mucousa, No Blood Mouth/Throat: Normal Inspection, Normal Lips, Normal Oropharynx Head: Atraumatic, Normocephalic Neck: Normal Inspection, Supple, Non-Tender, Full Range of Motion Respiratory/Chest: No Respiratory Distress, Lungs Clear, Normal Breath Sounds, No Accessory Muscle Use, Chest Non-Tender Cardiovascular: Normal Peripheral Pulses, Regular Rate, Rhythm, No JVD GI/Abdominal: Normal Bowel Sounds, Soft, Non-Tender, No Mass Back: Normal Inspection Extremities: Normal Inspection, Normal Range of Motion, Non-Tender, No Pedal Edema, Normal Capillary Refill Neurological: Alert, Oriented, CN II-XII Intact, No Motor/Sensory Deficits Skin: Warm, Dry, Intact, Normal Color, No Rash ED ENT PROCEDURES - Additional/Other Procedure(s) Other (Free Text) Procedure(s): After informed verbal consent was obtained from the patient and her son, tetracaine eyedrops were applied to the right eye and the eye was examined. No foreign body was found. The upper lid was everted and no foreign body was seen. There was some slight conjunctival injection. Foreseen stain was applied and there was uptake in the superior and lateral aspect of the right eye. The patient tolerated this well and there were no apparent complications. The right eye was irrigated with eye stream eyewash by the nursing staff following this. Course - Vital Signs Last Recorded V/S: Last Vital Signs Temp 36.9 C 04/17/19 12:20 Pulse 61 04/17/19 12:20 Resp 18 04/17/19 12:20 BP 156/64 H 04/17/19 12:20 Pulse Ox 98 04/17/19 12:20 - Orders/Labs/Meds Orders: Active Orders 24 hr Category Date Time Status CULTURE URINE [RM] Stat Lab 04/17/19 13:41 Ordered Labs: Laboratory Tests 04/17/19 Range/Units 13:19 Urine Color Yellow (YELLOW) Urine Appearance Cloudy (CLEAR) Urine pH 5.0 (5.0-6.5) Ur Specific [place] 1.020 (1.010-1.025) Urine Protein 30 H (NEGATIVE) mg/dL Urine Glucose (UA) Normal (NORMAL) mg/dL Urine Ketones Negative (NEGATIVE) mg/dL Urine Occult Blood Large H (NEGATIVE) Urine Nitrite Positive H (NEGATIVE) Urine Bilirubin Negative (NEGATIVE) Urine Urobilinogen Normal (NEGATIVE) mg/dL Ur Leukocyte Esterase Large H (NEGATIVE) Urine RBC >100 H (0-5) Urine WBC >100 H (0-5) Ur Squamous Epith Cells Few H (NS,R,O) Urine Bacteria Many H (NS) Meds: Medications Discontinued Medications Generic Name Dose Route Start Last Admin Trade Name Freq PRN Reason Stop Dose Admin Balanced Salt Solution 100 ml 04/17/19 12:54 04/17/19 13:13 Eye Stream Eye Rinse EYERT 04/17/19 12:55 30 ml ONETIME ONE Administration Tetracaine HCl 1 ml 04/17/19 12:36 04/17/19 13:00 Tetracaine 0.5% Steri-Unit Rachel EYERT 04/17/19 12:37 2 drop ASDIRECTED ONE Administration - Re-Assessments/Exams Free Text/Narrative Re-Assessment/Exam: 04/17/19 12:56: I exam did show slight fluorescein uptake consistent with a corneal abrasion. No foreign body was found. I do not see any definite evidence of a herpes infection. I don't really have the stain or the slit lamp for this exam. I discussed this with the patient's son. I will treat the patient with erythromycin eye ointment for a corneal abrasion (the nursing staff has irrigated her right eye with a bottle of eye stream eye solution). I will also treat the patient with zirgan eye drops a potential herpes infection and the patient should follow-up with an polysomnographer the beginning of this coming week. The son is in agreement with this plan. 04/17/19 13:35: Patient also with what appears to be a urinary tract infection. I will place the patient on Bactrim DS 1 by mouth twice a day for 7 days. A urine culture was sent. The patient also had some recurrence of discomfort in her right eye after irrigation of the eye. We applied some more tetracaine eyedrops to the right eye and will apply the erythromycin eye ointment when the son is back with the prescriptions. Departure - Departure Time of Disposition: 13:10 Disposition: Home, Self-Care 01 Condition: Good (Stable) Clinical Impression: Viral infection of right eye Injury of conjunctiva and corneal abrasion of right eye w/o FB Qualifiers: Encounter type: initial encounter Qualified Code(s): S05.01XA - Injury of conjunctiva and corneal abrasion without foreign body, right eye, initial encounter UTI (urinary tract infection) Qualifiers: Urinary tract infection type: site unspecified Hematuria presence: with hematuria Qualified Code(s): N39.0 - Urinary tract infection, site not specified - Discharge Information Prescriptions: Erythromycin Base [Erythromycin 0.5% Ophth Oint] 1 applic EYERT BID 5 Days #1 tube Zirgan Opthalamic Gel 1 dose EYERT 5XDAY 7 Days #1 each Instructions: Corneal Abrasion, [id number], Urinary Tract Infection, Adult, [id number] Referrals: Manfred Galarza MD [Primary Care Provider] - Forms: ED Department Discharge Additional Instructions: You do have a scrape or an abrasion to your right eye. I did not see any foreign body. We irrigated your right eye and you should apply the erythromycin eye ointment to your right eye twice daily. Also, I cannot rule out another herpes virus infection of your right eye and I am placing you on eyedrops to treat this infection (zirgan eyedrops). You may also apply artificial tears to both eyes as needed. Follow-up with your eye doctor the beginning of this coming week. Back to an emergency department for marked increase in pain, worse vision or any other concerning sign or symptom. - My Orders Last 24 Hours: My Active Orders 04/17/19 13:41 CULTURE URINE [RM] Stat - Assessment/Plan Last 24 Hours: My Active Orders 04/17/19 13:41 CULTURE URINE [RM] Stat
[2019-04-17] MEDS ORDERED: Tetracaine HCl/PF 0.5% 4 ML Bottle EYERT ONE (12:36)
[2019-04-17] MEDS ORDERED: Balanced Salt Solution Ophth Irrig 30 ML Bottle EYERT ONE (12:54)
== END 2019-04-17 13:59 | disposition home or self-care (01) ==
LOC: FB.ED 12:16
DX: S05.01XA Injury of conjunctiva and corneal abrasion without foreign body, right eye, initial encounter (principal); H44.001 Unspecified purulent endophthalmitis, right eye; B97.89 Other viral agents as the cause of diseases classified elsewhere; N39.0 Urinary tract infection, site not specified; I10 Essential (primary) hypertension; E78.00 Pure hypercholesterolemia, unspecified; K21.9 Gastro-esophageal reflux disease without esophagitis; E03.9 Hypothyroidism, unspecified; Z79.899 Other long term (current) drug therapy; Z91.09 Other allergy status, other than to drugs and biological substances; Z88.0 Allergy status to penicillin; Z88.5 Allergy status to narcotic agent; Z91.030 Bee allergy status; X58.XXXA Exposure to other specified factors, initial encounter
CPT/HCPCS: 81001; 87086; 87088; 87186; 99283